=== PATIENT | male | born 1960 | race Caucasian/White ===

== ENCOUNTER → 2017-09-24 | Outpatient (CLI) | payer MEDICARE, MEDICAID ==
[~2017-09-24] MED LIST: ACET500T68 PO; ALP1 PO; ALPR-429 PO; AMA100 PO; AMLO-104 PO; AUG875 PO; AVONEX IM; AZIT-17 PO; CHOL10005 PO; DIA5 PO; DIAZ-308 PO; DIPH-466 PO; DOCU-416 PO; ESCI20TA8 PO; ESCI5TAB3 PO; FING0.5C2 PO; FLU20 PO; FLU45SYR25 IM ONLY; FLU60SYR30 IM ONLY; FLUO-202 PO; FLUT16SP20 NS; GAB100 PO; GABA-547 PO; GABA-549 PO; KETO5DRO50 OS; LAMO200T46 PO; LATA2.5D7 OU; LISI-362 PO; LISI-374 PO; LOR10 PO; LOR5/325 PO; LOR75 PO; LOVA40TA89 PO; MET500 PO; METF-1 PO; METF-411 PO; METO50TA19 PO; METXL50 PO; MIR15 PO; MIRT-22 PO; NAPR-1043 PO; NAPR220C12 PO; NEBI10TA4 PO; NYST1POW24 PO; PNEI IJ; PRED5DRO34 OS; SAW450CA3 PO
[2017-09-24 14:00] LABS: PLATELET COUNT, AUTOMATED 209 K/uL (150-450)
[2017-09-24 14:17] LABS: LDL CHOLESTEROL 55 mg/dl
== END ==
LOC: LAB 13:37
PROVIDERS: ATTEND Internal Medicine
DX: G35 Multiple sclerosis (principal); E78.5 Hyperlipidemia, unspecified; E11.9 Type 2 diabetes mellitus without complications; I10 Essential (primary) hypertension; F43.23 Adjustment disorder with mixed anxiety and depressed mood; R53.1 Weakness; W19.XXXA Unspecified fall, initial encounter
CPT/HCPCS: 36415; 82040; 82247; 82306; 82310; 82374; 82435; 82465; 82565; 82947; 83036; 83718; 84075; 84132; 84155; 84295; 84443; 84450; 84460; 84478; 84520; 85025

== ENCOUNTER → 2017-10-24 | Outpatient (CLI) | payer MEDICARE, MEDICAID ==
--- NOTE | 2017-10-24 20:20 | RADIOLOGY IMAGING REPORT ---
FACILITY: [facility] - [place] PATIENT NAME: Mina Paige : 1960 MR: [id number] V: [id number] EXAM DATE: ORDERING PHYSICIAN: LOLITA BRADY TECHNOLOGIST: Location: [facility] Patient: Mina Paige : 1960 Visit/Account:[id number] Date of Sevice: 10/24/2017 CT OF THE BRAIN WITHOUT CONTRAST HISTORY: Head trauma PROCEDURE: 3.0 mm contiguous axial sections were performed through the brain. Sagittal and coronal r eformats were submitted. COMPARISON: MR brain December 06, 2016 FINDINGS: BRAIN: Brain and intracranial structures: There is no mass lesion, hemorrhage or acute infarct. Moderate dif fuse cerebral volume loss. Periventricular and deep matter foci of hypoattenuation likely correspond to the T2 bright abnormalities better demonstrated on prior MRI and may reflect areas of demyelinatio n. Prominence of the frontal extra-axial space is unchanged from the comparison MRI. Orbits (included portions): Normal. Scalp: Normal. Skull: No fracture identified with some blurriness related to suboptimal kernel. Paranasal sinuses and mastoid air cells (included portions): Normal. IMPRESSION: No evidence of acute intracranial abnormality. One of the following dose optimization techniques was utilized in the performance of this exam: Autom ated exposure control; adjustment of the mA and/or kV according to the patient's size; or use of an i terative reconstruction technique. Specific details can be referenced in the facility's radiology C T exam operational policy. Report Dictated By: Fabio Dhaliwal MD at 10/24/2017 8:07 PM Report E-Signed By: Fabio Dhaliwal MD at 10/24/2017 8:17 PM WSN:[id number]
== END ==
LOC: CT 19:15
PROVIDERS: ATTEND Nurse Practitioner Family
DX: S09.90XA Unspecified injury of head, initial encounter (principal)
CPT/HCPCS: 70450

== ENCOUNTER → 2017-11-06 | Outpatient (CLI) | payer MEDICARE, MEDICAID ==
[~2017-11-06] MED LIST changes: +METO25TA23 PO
--- NOTE | 2017-11-06 13:43 | RADIOLOGY IMAGING REPORT ---
FACILITY: [facility] - [place] PATIENT NAME: Mina Paige : 1960 MR: [id number] V: [id number] EXAM DATE: ORDERING PHYSICIAN: NI EMERY TECHNOLOGIST: Location: [facility] [place] Patient: Mina Paige : 1960 Visit/Account:[id number] Date of Sevice: 11/06/2017 Exam type: TEMPOROMANDIBULAR History: left TMJ pain Comparison: None. Findings: Open and closed mouth views of the TMJs were obtained bilaterally. There was normal anterior transla tion of the mandibular condyles bilaterally on the open-mouth views. No significant sclerosis was id entified at the joint space IMPRESSION: 1. Unremarkable TMJ views. If pain does continue MR may be helpful Report Dictated By: Magda Aviels MD at 11/06/2017 1:36 PM Report E-Signed By: Magda Aviles MD at 11/06/2017 1:38 PM WSN:[id number]
== END ==
LOC: RAD 11:40
PROVIDERS: ATTEND Internal Medicine
DX: M26.629 Arthralgia of temporomandibular joint, unspecified side (principal)
CPT/HCPCS: 70330

== ENCOUNTER → 2017-11-18 | Outpatient (CLI) | payer MEDICARE, MEDICAID | LOC: LAB 16:06 | PROVIDERS: ATTEND Urology | DX: Z12.5 Encounter for screening for malignant neoplasm of prostate (principal) | CPT/HCPCS: 36415; G0103; 84153 ==

== ENCOUNTER 2017-12-26 16:15 | Outpatient (RCR) | payer MEDICARE, MEDICAID ==
--- NOTE | 2017-10-02 08:47 | PT INITIAL EVALUATION ---
MEDICAL DIAGNOSIS: W19.XXXA Fall, R53.1 Weakness TREATMENT DIAGNOSIS: Fall risk, weakness, altered gait and balance DATE OF ONSET: 03/25/17 SUBJECTIVE: Mina Paige presents to PT for recurrent falls at home due to his MS. He relates he's become more weak, L foot drop now, and is falling at home about 3 times per week. 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 He has home health [employer] for cleaning, cooking, supervision of showering three times per week. OBJECTIVE: Posture: Heels 12" apart, trunk flexed 30 degrees, knees hyperextended. ROM: L ankle PROM -15 degrees. Strength: Quads 3/5, PF 2/5, L ankle DF 3-/5. Mobility: Five times sit to stand, 21" seat height in 41 seconds. Gait: RW/rollator with feet not passing each other, L foot drop, trunk flexed 30 degrees, turns with stopping, >4 seconds, 50 feet in 5 minutes. Balance: Functional reach 0", heels 12" apart, knees lock out. Static stand 7- 10 seconds. ASSESSMENT: Mina Paige presents with high fall risk, weakness, altered gait and balance. He needs consult for a L AFO. He's an excellent candidate to reduce fall risk. Short Term Goals One month: Zaida reports fall frequency reduced to 2x/week, reaches forward 2" standing. Two months: Zaida reports 0-1 fall/week, reaches 5 inches forward, picks up objects from floor without falling. Patient's Goals Reduce falls and be stronger for gait with RW/4WW. PLAN: Patient to be seen for Strengthening/condition, Stretching, Neuromuscular Re-ed, Gait Trg/Balance Trg, Home Exercise Program 2x/Week for 2 Months Thank you for this referral. If you have any questions, comments, or concerns about this report or plan, please contact me at . RICCOD
--- NOTE | 2017-11-05 17:34 | PT PLAN OF CARE ---
Physician: Dr. Vladimir Teague Patient is being seen: 2x/week Therapist: Jesenia Bermudez, PT Medical Diagnosis: W19.XXXA Fall, R53.1 Weakness Treatment Diagnosis: Fall risk, weakness, altered gait and balance Date of Onset: 03/25/17 Date of Initial Evaluation: 10/01/17 Date patient was last seen: 11/05/17 Number of treatments: 10 Number of cancellations/No shows: 0 INTERVENTIONS: Strengthening/condition Stretching Neuromuscular Re-ed Gait Trg/Balance Trg Home Exercise Program GOALS: One month: Zaida reports fall frequency reduced to 2x/week, reaches forward 2" standing. (both met) Two months: Zaida reports 0-1 fall/week (not met), reaches 5 inches forward (met ), picks up objects from floor without falling (not met). PATIENT'S GOAL: Reduce falls and be stronger for gait with RW/4WW. (both progressing) Patient Compliance: Good Prognosis: Excellent Reasons for continuing therapy: S: Mina relates he's falling about 2-3 times per week now, not 2x/day. Posture: Heels 10" apart, trunk flexed 30 degrees, knees flexed. ROM: Ankles PROM -10 degrees. Gait: Rollator with R heel strike now, R heel just past L foot, L knee stiffness limits L knee extension for heel strike, 171 feet in 3 minutes. Gait speed with rollator 1 foot/seconds, a household ambulator. Balance: Unsteady turning L and R with SPC, but able to lift each foot. Functional reach improved from 0" to 5". Mobility: Five times sit to stand, 21" seat height in 31 seconds, a 72% impairment, an improvement from 41 seconds. A/P: Mina Paige is improving functional mobility, reducing fall risk slightly. He would benefit from continued PT to improve gait, balance and mobility more. If you agree, we'll continue at 2x/week another 6-8 weeks to goals set. Thank you. THERON
--- NOTE | 2017-12-18 14:12 | PT PLAN OF CARE ---
Physician: Dr. Vladimir Teague Patient is being seen: 2x/week Therapist: Jesenia Bermudez, PT Medical Diagnosis: W19.XXXA Fall, R53.1 Weakness Treatment Diagnosis: Fall risk, weakness, altered gait and balance Date of Onset: 03/25/17 Date of Initial Evaluation: 10/01/17 Date patient was last seen: 12/17/17 Number of treatments: 20 Number of cancellations/No shows: 0 INTERVENTIONS: Strengthening/condition Stretching Neuromuscular Re-ed Gait Trg/Balance Trg Home Exercise Program GOALS: One month: Zaida reports fall frequency reduced to 2x/week, reaches forward 2" standing. both met Two months: Zaida reports 0-1 fall/week (not met), reaches 5 inches forward (met), picks up objects from floor without falling (not met). PATIENT'S GOAL: Reduce falls and be stronger for gait with RW/4WW. Progressing Patient Compliance: Good Prognosis: Excellent Reasons for continuing therapy: S: Mina relates he's walking about his apartment but not in the hallways because he's self-conscious. He has 2 falls per week in his apartment. He's to be doing ankle stretching at home. Posture: Heels 12" apart, trunk upright. ROM: L ankle PROM -25 degrees. Strength: Quads 3/5, PF 2/5, L ankle DF 3-/5. Special Tests: Fiver times sit to stand reduced from 31 seconds to 24 seconds, still 100% disabled by the G-code calculator but better that evaluation and last POC date. Timed up and go with walker 25 seconds (max. breakoff = 21 seconds. Functional reach 5". Mobility: Five times sit to stand, 21" seat height in 41 seconds. Gait: Mina ambulates with R foot drop, but has ankle contracture, rollator or RW, 170 feet. A/P: Mina Paige is improving his strength, gait speed, has the same functional reach. If you agree, I'd like him to work PT another month, 2x/week, so we con work more balance and gait. Thank you. THERON
[~2017-12-26 16:15] MED LIST changes: -METF-411 PO; +METF-450 PO
== END 2017-12-30 ==
LOC: PT 16:15
PROVIDERS: ATTEND Internal Medicine
DX: R53.1 Weakness (principal); R26.89 Other abnormalities of gait and mobility; R29.6 Repeated falls; W19.XXXA Unspecified fall, initial encounter; G35 Multiple sclerosis; M21.372 Foot drop, left foot; E11.9 Type 2 diabetes mellitus without complications
CPT/HCPCS: 97162

== ENCOUNTER → 2018-05-29 | Outpatient (CLI) | payer MEDICARE, MEDICAID ==
[2018-05-29 13:21] LABS: PLATELET COUNT, AUTOMATED 207 K/uL (150-450)
[2018-05-29 13:41] LABS: LDL CHOLESTEROL 87 mg/dl
== END ==
LOC: LAB 12:58
PROVIDERS: ATTEND Internal Medicine
DX: F41.9 Anxiety disorder, unspecified (principal); G35 Multiple sclerosis; R00.1 Bradycardia, unspecified; E78.5 Hyperlipidemia, unspecified; E11.9 Type 2 diabetes mellitus without complications; I10 Essential (primary) hypertension
CPT/HCPCS: 36415; 82040; 82247; 82310; 82374; 82435; 82465; 82565; 82947; 83036; 83718; 84075; 84132; 84155; 84295; 84443; 84450; 84460; 84478; 84520; 85025

== ENCOUNTER 2018-11-05 11:36 | Inpatient (IN) | payer MEDICARE, MEDICAID ==
[~2018-11-05] VITALS: Ht 175.3 cm; Wt 75.3 kg
[~2018-11-05 11:36] MED LIST changes: -ACET-2007 PO; -CEFT1VIA63 IV; -ENOX40DI9 SC; -INSU100V24 SUBQ; -LAMO250T2 PO; -LIDO700A19 TP; -POTA20TA94 PO
--- NOTE | 2018-11-05 11:58 | ER Report ---
History and Physical Time Seen By MD: 11:43 Hx. of Stated Complaint: HISTORY OF MS. FELL BACKWARDS FRTOM STANDING POSITION AND HIT HEAD. DOES NOT FULLY REMMEBER THE FALL HPI/ROS CHIEF COMPLAINT: Fall HISTORY OF PRESENT ILLNESS: Patient is a 58 year old male here complaining of pain in his back and left elbow after a fall at home. He does not really remember how he fell but that he falls frequently due to generalized weakness and equilibrium problems due to MS dx since 2008. States he has fallen 3 times in the last 3 days and his home health MESS COOK brought him into the ED today. Pt has fever on arrival of 101. REVIEW OF SYSTEMS: Respiratory: No cough, no dyspnea. Cardiovascular: No chest pain, no palpitations. Gastrointestinal: No vomiting, no abdominal pain. Musculoskeletal: back pain, left elbow pain, head pain Allergies: Coded Allergies: aspirin (Verified Allergy, Mild, 11/05/18) father's temp drops 6-7 degrees penicillin G (Verified Allergy, Unknown, 11/05/18) Home Meds Active Scripts Amlodipine Besylate (NORVASC) 10 Mg Tablet, 1 TAB PO QDAY, #90 TAB 3 Refills Prov:NI EMERY MD 10/14/18 Lisinopril (LISINOPRIL) 40 Mg Tablet, 1 TAB PO QDAY, #90 TAB 3 Refills Prov:NI EMERY MD 10/14/18 Escitalopram Oxalate (ESCITALOPRAM OXALATE) 20 Mg Tablet, 20 MG PO QDAY, #90 TAB 3 Refills Prov:NI EMERY MD 10/14/18 Amantadine Hcl (AMANTADINE) 100 Mg Capsule, 100 MG PO BID, #180 CAPSULE 1 Refill Prov:NI EMERY MD 08/20/18 Metformin Hcl (METFORMIN HCL) 500 Mg Tablet, 2 TAB PO BID, #360 TAB 4 Refills Prov:NI EMERY MD 06/09/18 Metoprolol Succinate (METOPROLOL SUCCINATE) 50 Mg Tab.er.24h, 1 TAB PO QDAY, #90 TAB 3 Refills Prov:NI EMERY MD 05/27/18 Lovastatin (LOVASTATIN) 40 Mg Tablet, 1 TAB PO QHS, #90 TAB 1 Refill Prov:NI EMERY MD 05/20/18 Mirtazapine (MIRTAZAPINE) 15 Mg Tablet, 1 TAB PO QHS, #90 TAB 3 Refills Prov:NI EMERY MD 02/04/18 Gabapentin (GABAPENTIN) 300 Mg Capsule, 300 MG PO TID, #270 CAPSULE 4 Refills Prov:NI EMERY MD 11/05/17 Reported Medications Prednisolone Acetate (PREDNISOLONE ACETATE) 5 Ml Drops.susp, 1 DROP OS QID 08/06/16 Latanoprost (LATANOPROST) 2.5 Ml Drops, 1 DROP OU QHS 08/06/16 Ketorolac Tromethamine (ACULAR) 5 Ml Drops, 1 DROP OS QID 08/06/16 Saw [place] Fruit (SAW PALMETTO) 450 Mg Capsule, PO QHS, CAPSULE 08/06/16 Acetaminophen (TYLENOL EXTRA STRENGTH) 500 Mg Tablet, 1 TAB PO Q6H PRN for pain, TAB 01/19/16 Cholecalciferol (Vitamin D3) (VITAMIN D3) 1,000 Unit Tablet, 1 TAB PO QDAY, TAB 01/19/16 Lamotrigine (LAMICTAL) 200 Mg Tablet, 1 TAB PO QDAY 01/19/16 Fingolimod (GILENYA) 0.5 Mg Cap, 1 CAP PO QDAY, CAP 01/19/16 Diazepam (DIAZEPAM) 5 Mg Tablet, 0.5-1 TAB PO QDAY PRN for MILD TO MODERATE PAIN, #15 TAB 01/19/16 Past Medical/Surgical History Past medical history of Multiple Sclerosis, Migraines, HTN, Asthma, Hiatal Hernia, arthritis, back pain, diabetes, depression/anxiety Past surgical history of hiatal hernia surgery, abdominal hernia, bilat wrists, R elbow, L knee x3, tonsillectomy, cataract surgery Family history of diabetes in mother, stroke in father Reviewed Nurses Notes: Yes Hx Smoking: No Smoking Status: Current: Some Days Smoker Exposure to Second Hand Smoke?: No Hx Substance Use Disorder: No Hx Alcohol Use: No Constitutional Vital Sign - Last 24 Hours 11/05/18 11/05/18 11/05/18 11/05/18 11:37 12:00 13:00 13:26 Temp 101.1 100.3 Pulse 99 94 91 Resp 20 22 22 B/P (MAP) 132/78 157/77 (103) 162/84 (110) Pulse Ox 90 96 94 O2 Delivery Room Air 11/05/18 11/05/18 11/05/18 11/05/18 14:00 14:30 15:00 15:30 Pulse 88 87 84 Resp 22 23 23 B/P (MAP) 159/84 (109) 157/83 (107) 161/84 (109) 142/77 (98) Pulse Ox 85 91 91 92 Physical Exam General Appearance: The patient is alert, has no immediate need for airway protection and no current signs of toxicity. Eyes: Pupils equal and round no injection, EOMI Respiratory: Chest is non tender, lungs are clear to auscultation. Cardiac: regular rate and rhythm Gastrointestinal: Abdomen is soft and non tender, no masses, bowel sounds normal. Musculoskeletal: Neck: Neck is supple and non tender, C collar on Left elbow with limited ROM in extension to 100 degrees Skin: No rashes or lesions, several lacerations with scabbing on bilateral knees, one bruise on left lateral deltoid with tenderness DIFFERENTIAL DIAGNOSIS: After history and physical exam differential diagnosis was considered for humerus fracture, subarachnoid hemorrhage, spinal fracture, altered mental status, MS exacerbation, UTI Medical Decision Making Data Points Result Diagram: 11/05/18 1144 11/05/18 1144 Laboratory Hematology Test 11/05/18 11:44 White Blood Count 14.0 k/uL (4.5-11.0) H Red Blood Count 5.11 M/uL (4.00-5.60) Hemoglobin 15.6 g/dL (14.0-18.0) Hematocrit 45.2 % (42.0-52.0) Mean Corpuscular Volume 88.6 fL (80.0-96.0) Mean Corpuscular Hemoglobin 30.6 pg (26.0-33.0) Mean Corpuscular Hemoglobin Concent 34.6 g/dL (32.0-36.0) Red Cell Distribution Width 13.8 % (11.5-14.5) Platelet Count 170 K/uL (150-450) Mean Platelet Volume 9.4 fL (7.2-11.1) Neutrophils (%) (Auto) 90.6 % (39.4-72.5) H Lymphocytes (%) (Auto) 1.9 % (17.6-49.6) L Monocytes (%) (Auto) 7.4 % (4.1-12.4) Eosinophils (%) (Auto) 0.0 % (0.4-6.7) L Basophils (%) (Auto) 0.1 % (0.3-1.4) L Nucleated RBC Relative Count (auto) 0.5 /100WBC Neutrophils # (Auto) 12.7 K/uL (2.0-7.4) H Lymphocytes # (Auto) 0.3 K/uL (1.3-3.6) L Monocytes # (Auto) 1.0 K/uL (0.3-1.0) Eosinophils # (Auto) 0.0 K/uL (0.0-0.5) Basophils # (Auto) 0.0 K/uL (0.0-0.1) Nucleated RBC Absolute Count (auto) 0.06 K/uL Chemistry Test 11/05/18 11:44 Sodium Level 142 mmol/L (137-145) Potassium Level 4.2 mmol/L (3.5-5.0) Chloride Level 104 mmol/L (98-107) Carbon Dioxide Level 17 mmol/L (22-30) Blood Urea Nitrogen 20 mg/dl (9-21) Creatinine 1.40 mg/dl (0.66-1.25) Glomerular Filtration Rate Calc 52.1 Random Glucose 149 mg/dl (75-110) Lactate 2.0 mmol/L (0.7-2.1) Calcium Level 9.9 mg/dl (8.4-10.2) Total Bilirubin 1.2 mg/dl (0.2-1.3) Aspartate Amino Transf (AST/SGOT) 68 U/L (0-35) Alanine Aminotransferase (ALT/SGPT) 62 U/L (0-56) Alkaline Phosphatase 146 U/L (0-126) Total Creatine Kinase 2425 U/L (55-170) Total Protein 7.6 g/dl (6.3-8.2) Albumin 4.8 g/dl (3.5-5.0) Urinalysis Test 11/05/18 12:19 Urine Color Yellow Urine Clarity Clear Urine pH 5.0 pH (4.8-9.5) Urine Specific [place] 1.019 Urine Protein 100 mg/dL (NEGATIVE) Urine Glucose (UA) Negative mg/dL (NEGATIVE) Urine Ketones 80 mg/dL (NEGATIVE) Urine Blood Moderate (NEGATIVE) Urine Nitrite Negative (NEGATIVE) Urine Bilirubin Negative (NEGATIVE) Urine Urobilinogen Negative mg/dL (0.2-1.9) Urine Leukocyte Esterase Trace (NEGATIVE) Urine RBC 4 /HPF (0-2/HPF) Urine WBC 34 /HPF (0-5/HPF) Urine Squamous Epithelial Cells None /LPF (NONE-FEW) Urine Bacteria Negative /HPF (NONE-FEW) Urine Hyaline Casts Few /LPF (NONE-FEW) Urine Mucus None /HPF (NONE-FEW) EKG/Imaging Imaging EXAMINATION: CT thoracic spine without IV contrast CT lumbar spine without IV contrast HISTORY: Fall COMPARISON: None. TECHNIQUE: Axial images were obtained through the thoracic and lumbar spine. Coronal and sagittal reformatted images were obtained from the axial source data. One of the following dose optimization techniques was utilized in the perfor anna of this exam: Automated exposure control; adjustment of the mA and/or kV according to the patient's size; or use of an iterative reconstruction technique. Specific details can be referenced in the facility's radiology CT exam operational policy. FINDINGS: Alignment: Normal. Vertebral bodies: The thoracic vertebral bodies are intact. There is a compression deformity of the L1 vertebral body with height loss anteriorly. Posterior elements: Negative. Hardware: None. Disc Spaces: The thoracic disc spaces are intact. Soft tissues: The bladder is incompletely visualized but demonstrate a thickened wall. There is also a cystic, peripherally calcified mass anterior to the bladder, incompletely visualized. Enhancement: Negative. IMPRESSION: 1. Compression deformity of the superior anterior aspect of the L1 vertebral body of uncertain chronicity, this may be acute. This was not present on 06/08/2011. 2. No acute fracture in the thoracic spine. No thoracolumbar malalignment. 3. The bladder is incompletely visualized but demonstrate a thickened wall, may be related to chronic retention or bowel obstruction. 4. Cystic, peripherally calcified mass anterior to the bladder, incompletely visualized, however grossly similar compared with 06/08/2011. EXAMINATION: CT thoracic spine without IV contrast CT lumbar spine without IV contrast HISTORY: Fall COMPARISON: None. TECHNIQUE: Axial images were obtained through the thoracic and lumbar spine. Coronal and sagittal reformatted images were obtained from the axial source data. One of the following dose optimization techniques was utilized in the performance of this exam: Automated exposure control; adjustment of the mA and/or kV according to the patient's size; or use of an iterative reconstruction technique. Specific details can be referenced in the facility's radiology CT exam operational policy. FINDINGS: Alignment: Normal. Vertebral bodies: The thoracic vertebral bodies are intact. There is a compression deformity of the L1 vertebral body with height loss anteriorly. Posterior elements: Negative. Hardware: None. Disc Spaces: The thoracic disc spaces are intact. Soft tissues: The bladder is incompletely visualized but demonstrate a thickened wall. There is also a cystic, peripherally calcified mass anterior to the bladder, incompletely visualized. Enhancement: Negative. IMPRESSION: 1. Compression deformity of the superior anterior aspect of the L1 vertebral body of uncertain chronicity, this may be acute. This was not present on 06/08/2011. 2. No acute fracture in the thoracic spine. No thoracolumbar malalignment. 3. The bladder is incompletely visualized but demonstrate a thickened wall, may be related to chronic retention or bowel obstruction. 4. Cystic, peripherally calcified mass anterior to the bladder, incompletely visualized, however grossly similar compared with 06/08/2011. EXAMINATION: CT Cervical spine without intravenous contrast HISTORY: Fall. COMPARISON: MRI of the cervical spine from 09/29/2013. TECHNIQUE: Axial images were obtained from the skull base through the upper thoracic spine without IV contrast administration. Coronal and sagittal reformatted images were obtained from the axial source data. One of the following dose optimization techniques was utilized in the performance of this exam: Automated exposure control; adjustment of the mA and/or kV according to the patient's size; or use of an iterative reconstruction technique. Specific details can be referenced in the facility's radiology CT exam operational policy. FINDINGS: Alignment: Normal. Cranio-cervical junction: Negative. Vertebral bodies: No acute fracture. Posterior elements: No acute fracture. Mild multilevel facet hypertrophy. Hardware: None. Disc Spaces: Advanced multilevel disc degenerative changes in the cervical spine. Soft tissues: No significant paraspinal soft tissue swelling. Calcified plaque at the carotid bifurcations. Visualized upper chest: Negative. IMPRESSION: No acute fracture of the cervical spine. Multilevel cervical spondylosis. EXAMINATION: CT head without IV contrast HISTORY: Fall COMPARISON: 10/24/2017. TECHNIQUE: Contiguous axial images were obtained from the skull base to the vertex without intravenous contrast. Sagittal and coronal reformatted images are also submitted. One of the following dose optimization techniques was utilized in the performance of this exam: Automated exposure control; adjustment of the mA and/or kV according to the patient's size; or use of an iterative reconstruction technique. Specific details can be referenced in the facility's radiology CT exam operational policy. FINDINGS: Brain volume: Stable. Ventricles: Stable. Acute ischemic changes: None. Hemorrhage: None. Masses/edema: None. [place]-white: Negative. White matter: Low-density changes noted in the hemispheric, predominantly periventricular white matter. Vessels: Calcified plaque of both carotid siphons. Extra-axial: Negative. Calvarium/scalp: Negative. Skull base/visualized face: Negative. Visualized sinuses/orbits: Negative. IMPRESSION: 1. No acute intracranial findings. 2. Atherosclerotic disease. 3. Chronic white matter changes. Report Dictated By: HEAVENLY MUNOZ at 11/05/2018 1:48 PM Report E-Signed By: HEAVENLY MUNOZ at 11/05/2018 1:54 PM WSN:[email or web address]-S CT CHEST ABDOMEN PELVIS W/CON HISTORY: Fall, ADDITIONAL HISTORY: None. TECHNIQUE: Following administration of IV contrast axial images acquired through the chest abdomen and pelvis during the portal venous phase. Coronal and sagittal reformatting was also performed.Dose Lowering Technique One of the following dose optimization techniques was utilized in the performance of this exam: Automated exposure control; adjustment of the mA and/or kV according to the patient's size; or use of an iterative reconstruction technique. Specific details can be referenced in the facility's radiology CT exam operational policy. CONTRAST: 75 mL Isovue-370 COMPARISON: June 12, 2011 FINDINGS: CHEST: Lungs/Pleura: Negative. Mediastinum/lymph nodes: Negative. Heart/vessels: Very mild coronary artery calcifications Bones/soft tissues: Negative ABDOMEN AND PELVIS: Hepatobiliary: Cholelithiasis although no evidence of biliary ductal dilatation Spleen: Negative. Pancreas: Negative. Adrenals: Negative. Kidneys ureters and bladder : There are extrarenal pelves bilaterally. There is a lobular contour to both kidneys. There is a 1.3 cm cyst in the medial lower pole of the right kidney. This mild bladder wall thickening Genitalia: Postsurgical changes from a penile prosthesis GI: The colon is very redundant. There is a moderate amount of fecal material throughout the colon which can be seen with constipation. Postsurgical changes at the GE junction from a fundoplication Vessels/spaces/nodes: Mild to moderate atherosclerotic calcifications throughout the abdomen and pelvis Bones/soft tissues: There is a mild compression fracture involving the super endplate of L1. This is of indeterminate age however there are marginal osteophytes suggesting this could be an old injury. Clinical correlation needed Additional findings: None pertinent. IMPRESSION: Cholelithiasis although no evidence of biliary ductal dilatation Mild compression fracture involving the superior endplate of L1. This is of indeterminate age however there are marginal osteophytes suggesting this could be an old injury. Very redundant colon with a moderate amount of fecal material which can be seen with constipation Mild bladder wall thickening Additional chronic findings as described Report Dictated By: Magda Aviles MD at 11/05/2018 1:53 PM Report E-Signed By: Magda Aviles MD at 11/05/2018 2:09 PM WSN:[email or web address] Exam type: ELBOW 3 VIEW LEFT History: fall, back pain Comparison: None. Findings: Three views were submitted. There are several tiny bony densities projecting just anterior to the elbow joint on the lateral view. These could be chronic versus peritendinous calcifications although tiny avulsion fracture fragments cannot be totally excluded. Otherwise no evidence of acute fracture dislocation of the left elbow is seen IMPRESSION: 1. Several tiny bony densities just anterior to the elbow joint on the lateral view. This could be chronic versus peritendinous calcination occasions although avulsion fracture fragments not totally excluded. Report Dictated By: Magda Aviles MD at 11/05/2018 1:02 PM Report E-Signed By: Magda Aviles MD at 11/05/2018 1:04 PM WSN:[email or web address] Exam type: CHEST PA LAT History: FEVER Comparison: April 03, 2014. Findings: The lungs are free of acute effusions, infiltrates or edema. The cardiac silhouette is normal in size. The trachea is in midline. There is a mild compression fracture at the thoracolumbar junction not appreciated on the prior study IMPRESSION: 1. No evidence of pulmonary consolidation. There is a mild compression fracture at the thoracolumbar junction not present on the prior study Report Dictated By: Magda Aviles MD at 11/05/2018 1:04 PM Report E-Signed By: Magda Aviles MD at 11/05/2018 1:06 PM WSN:[email or web address] ED Course/Re-evaluation ED Course Patient is a 58 year old male presenting to ED after a fall at home. His home health nurse encouraged him to come in. He has had 3 falls in the past 3 days. Patient has a diagnosis of MS and states that it has been getting worse recently because he is falling more often. Patient expressed pain in his mid back and left elbow. Uses a rolling walker at home occasionally. Is unsure if he took his medications this morning for diabetes, HTN and MS. Has not eaten since yesterday morning because he could not get around the house well. Physical exam revealed limited ROM in extension of the left elbow and RUQ tenderness to palpation. Denies any changes to urinary or BMs. Differential diagnoses considered. CBC, CMP, UA, Blood cultures were ordered due to fever upon arrival to ED. CT brain w/o contrast, CT chest/abd/pelvis w/ contrast, C-spine XR and Left elbow XR were ordered. Old compression fracture of L1 vertebra, an old avulsion fracture on the left elbow, cholelithiasis and UTI were discovered. No other acute findings. Patient was informed of his condition and understood. Chose to be admitted due to the fact that his weakness, equilibrium is worse at this point. Patient received 1 NS Bolus, Tdap Boostrix, 1g acetaminophen and 1g of Rochepin and then admitted. Decision to Disposition Date: Nov 05, 2018 Decision to Disposition Time: 15:43 Depart Departure Latest Vital Signs Vital Signs Date Time Temp Pulse Resp B/P (MAP) Pulse Ox O2 Delivery O2 Flow Rate FiO2 11/05/18 15:30 84 142/77 (98) 92 11/05/18 15:00 23 11/05/18 13:26 100.3 11/05/18 11:37 Room Air Impression: Primary Impression: Urinary tract infection Additional Impressions: Compression fracture of L1 vertebra Fall Condition: Improved Disposition: HOME OR SELF-CARE Referrals: NI EMERY MD (PCP) Patient Instructions: Fall Prevention (ED), Urinary Tract Infection in Men (ED), Vertebral Compression Fracture (ED) Additional Instructions: Rest and increase fluids. Take antibiotics as prescribed. Follow up with Primary Care Physician. Return to ED if symptoms suddenly worsen. Problem Qualifiers Primary Impression: Urinary tract infection Urinary tract infection type: acute cystitis Hematuria presence: without hematuria Qualified Codes: N30.00 - Acute cystitis without hematuria Additional Impressions: Compression fracture of L1 vertebra Encounter type: initial encounter Qualified Codes: S32.010A - Wedge compression fracture of first lumbar vertebra, initial encounter for closed fracture Fall Encounter type: initial encounter Qualified Codes: W19.XXXA - Unspecified fall, initial encounter MARCIN SHARMA Nov 05, 2018 11:58
[2018-11-05] MEDS ORDERED: DIPHTH/TETANUS/ACEL. PERTUSSIS IM ONLY ONE (12:05)
[2018-11-05] MEDS ORDERED: NS(*) 0.9% 1000 ML BAG 1,000 ML IV ONE (12:05)
[2018-11-05 12:15] LABS: PLATELET COUNT, AUTOMATED 170 K/uL (150-450)
[2018-11-05] MEDS ORDERED: ACETAMINOPHEN(*)1000 MG/100 ML 100 ML IVPB ONE (12:35)
--- NOTE | 2018-11-05 13:12 | RADIOLOGY IMAGING REPORT ---
FACILITY: PATIENT NAME: Mina Paige : 1960 MR: [id number] V: [id number] EXAM DATE: ORDERING PHYSICIAN: MARCIN SHARMA TECHNOLOGIST: Location: [facility] Patient: Mina Paige : 1960 Visit/Account:[id number] Date of Sevice: 11/05/2018 Exam type: ELBOW 3 VIEW LEFT History: fall, back pain Comparison: None. Findings: Three views were submitted. There are several tiny bony densities projecting just anterior to the elbow joint on the lateral view . These could be chronic versus peritendinous calcifications although tiny avulsion fracture fragmen ts cannot be totally excluded. Otherwise no evidence of acute fracture dislocation of the left elbow is seen IMPRESSION: 1. Several tiny bony densities just anterior to the elbow joint on the lateral view. This could be chronic versus peritendinous calcination occasions although avulsion fracture fragments not totally e xcluded. Report Dictated By: Magda Aviles MD at 11/05/2018 1:02 PM Report E-Signed By: Magda Aviles MD at 11/05/2018 1:04 PM WSN:[email or web address]
--- NOTE | 2018-11-05 13:15 | RADIOLOGY IMAGING REPORT ---
[place] [facility] [place] Mina Paige : 1960 MR: [id number] V: [id number] EXAM DATE: ORDERING PHYSICIAN: MARCIN SHARMA TECHNOLOGIST: [place] [facility] [place] Mina Paige : 1960 Visit/Account:[id number] Date of Sevice: 11/05/2018 Exam type: CHEST PA LAT History: FEVER Comparison: April 03, 2014. Findings: The lungs are free of acute effusions, infiltrates or edema. The cardiac silhouette is normal in siz e. The trachea is in midline. There is a mild compression fracture at the thoracolumbar junction no t appreciated on the prior study IMPRESSION: 1. No evidence of pulmonary consolidation. There is a mild compression fracture at the thoracolumbar junction not present on the prior study Report Dictated By: Magda Aviles MD at 11/05/2018 1:04 PM Report E-Signed By: Magda Aviles MD at 11/05/2018 1:06 PM MAGGIN:BALBINA
[2018-11-05] MEDS ORDERED: IOPAMIDOL 76% 100 ML INFUS BTL 100 ML ONE (13:24)
--- NOTE | 2018-11-05 14:02 | RADIOLOGY IMAGING REPORT ---
FACILITY: [facility] [place] PATIENT NAME: Mina Paige : 1960 MR: [id number] V: [id number] EXAM DATE: ORDERING PHYSICIAN: MARCIN SHARMA TECHNOLOGIST: Location: [facility] Patient: Mina Paige : 1960 Visit/Account:[id number] Date of Sevice: 11/05/2018 EXAMINATION: CT head without IV contrast HISTORY: Fall COMPARISON: 10/24/2017. TECHNIQUE: Contiguous axial images were obtained from the skull base to the vertex without intraven ous contrast. Sagittal and coronal reformatted images are also submitted. One of the following dose optimization techniques was utilized in the performance of this exam: Autom ated exposure control; adjustment of the mA and/or kV according to the patient's size; or use of an i terative reconstruction technique. Specific details can be referenced in the facility's radiology C T exam operational policy. FINDINGS: Brain volume: Stable. Ventricles: Stable. Acute ischemic changes: None. Hemorrhage: None. Masses/edema: None. [place]-white: Negative. White matter: Low-density changes noted in the hemispheric, predominantly periventricular white karthikeyan er. Vessels: Calcified plaque of both carotid siphons. Extra-axial: Negative. Calvarium/scalp: Negative. Skull base/visualized face: Negative. Visualized sinuses/orbits: Negative. IMPRESSION: 1. No acute intracranial findings. 2. Atherosclerotic disease. 3. Chronic white matter changes. Report Dictated By: HEAVENLY MUNOZ at 11/05/2018 1:48 PM Report E-Signed By: HEAVENLY MUNOZ at 11/05/2018 1:54 PM WSN:[email or web address]
--- NOTE | 2018-11-05 14:16 | RADIOLOGY IMAGING REPORT ---
FACILITY: PATIENT NAME: Mina Paige : 1960 MR: [id number] V: [id number] EXAM DATE: ORDERING PHYSICIAN: MARCIN SHARMA TECHNOLOGIST: [place] [facility] [place]: [place] : 1960 Visit/Account:[id number] Date of Sevice: 11/05/2018 CT CHEST ABDOMEN PELVIS W/CON HISTORY: Fall, ADDITIONAL HISTORY: None. TECHNIQUE: Following administration of IV contrast axial images acquired through the chest abdomen a nd pelvis during the portal venous phase. Coronal and sagittal reformatting was also performed.Dose Lowering Technique One of the following dose optimization techniques was utilized in the performance of this exam: Autom ated exposure control; adjustment of the mA and/or kV according to the patient's size; or use of an i terative reconstruction technique. Specific details can be referenced in the facility's radiology C T exam operational policy. CONTRAST: 75 mL Isovue-370 COMPARISON: June 12, 2011 FINDINGS: CHEST: Lungs/Pleura: Negative. Mediastinum/lymph nodes: Negative. Heart/vessels: Very mild coronary artery calcifications Bones/soft tissues: Negative ABDOMEN AND PELVIS: Hepatobiliary: Cholelithiasis although no evidence of biliary ductal dilatation Spleen: Negative. Pancreas: Negative. Adrenals: Negative. Kidneys ureters and bladder : There are extrarenal pelves bilaterally. There is a lobular contour to both kidneys. There is a 1.3 cm cyst in the medial lower pole of the right kidney. This mild bladd er wall thickening Genitalia: Postsurgical changes from a penile prosthesis GI: The colon is very redundant. There is a moderate amount of fecal material throughout the colon which can be seen with constipation. Postsurgical changes at the GE junction from a fundoplication Vessels/spaces/nodes: Mild to moderate atherosclerotic calcifications throughout the abdomen and pel vis Bones/soft tissues: There is a mild compression fracture involving the super endplate of L1. This i s of indeterminate age however there are marginal osteophytes suggesting this could be an old injury. Clinical correlation needed Additional findings: None pertinent. IMPRESSION: Cholelithiasis although no evidence of biliary ductal dilatation Mild compression fracture involving the superior endplate of L1. This is of indeterminate age howeve r there are marginal osteophytes suggesting this could be an old injury. Very redundant colon with a moderate amount of fecal material which can be seen with constipation Mild bladder wall thickening Additional chronic findings as described Report Dictated By: Magda Aviles MD at 11/05/2018 1:53 PM Report E-Signed By: Magda Aviles MD at 11/05/2018 2:09 PM WSN:[email or web address]
--- NOTE | 2018-11-05 14:44 | RADIOLOGY IMAGING REPORT ---
FACILITY: [facility] - [place] PATIENT NAME: Mina Paige : 1960 MR: [id number] V: [id number] EXAM DATE: ORDERING PHYSICIAN: MARCIN SHARMA TECHNOLOGIST: [place] [facility] [place] Mina Paige : 1960 Visit/Account:[id number] Date of Sevice: 11/05/2018 EXAMINATION: CT Cervical spine without intravenous contrast HISTORY: Fall. COMPARISON: MRI of the cervical spine from 09/29/2013. TECHNIQUE: Axial images were obtained from the skull base through the upper thoracic spine without I V contrast administration. Coronal and sagittal reformatted images were obtained from the axial [facility] e data. One of the following dose optimization techniques was utilized in the performance of this exam: Autom ated exposure control; adjustment of the mA and/or kV according to the patient's size; or use of an i terative reconstruction technique. Specific details can be referenced in the facility's radiology C T exam operational policy. FINDINGS: Alignment: Normal. Cranio-cervical junction: Negative. Vertebral bodies: No acute fracture. Posterior elements: No acute fracture. Mild multilevel facet hypertrophy. Hardware: None. Disc Spaces: Advanced multilevel disc degenerative changes in the cervical spine. Soft tissues: No significant paraspinal soft tissue swelling. Calcified plaque at the carotid bifurca tions. Visualized upper chest: Negative. IMPRESSION: No acute fracture of the cervical spine. Multilevel cervical spondylosis. Report Dictated By: Cristian Conroy MD at 11/05/2018 2:28 PM Report E-Signed By: Cristian Conroy MD at 11/05/2018 2:36 PM WSN:[id number]
--- NOTE | 2018-11-05 14:57 | RADIOLOGY IMAGING REPORT ---
FACILITY: [facility] [place] PATIENT NAME: Mina Paige : 1960 MR: [id number] V: [id number] EXAM DATE: ORDERING PHYSICIAN: MARCIN SHARMA TECHNOLOGIST: Location: [facility] Patient: Mina Paige : 1960 Visit/Account:[id number] Date of Sevice: 11/05/2018 EXAMINATION: CT thoracic spine without IV contrast CT lumbar spine without IV contrast HISTORY: Fall COMPARISON: None. TECHNIQUE: Axial images were obtained through the thoracic and lumbar spine. Coronal and sagittal re formatted images were obtained from the axial source data. One of the following dose optimization techniques was utilized in the performance of this exam: Autom ated exposure control; adjustment of the mA and/or kV according to the patient's size; or use of an i terative reconstruction technique. Specific details can be referenced in the facility's radiology C T exam operational policy. FINDINGS: Alignment: Normal. Vertebral bodies: The thoracic vertebral bodies are intact. There is a compression deformity of the L1 vertebral body with height loss anteriorly. Posterior elements: Negative. Hardware: None. Disc Spaces: The thoracic disc spaces are intact. Soft tissues: The bladder is incompletely visualized but demonstrate a thickened wall. There is also a cystic, peripherally calcified mass anterior to the bladder, incompletely visualized. Enhancement: Negative. IMPRESSION: 1. Compression deformity of the superior anterior aspect of the L1 vertebral body of uncertain [facility] [place], this may be acute. This was not present on 06/08/2011. 2. No acute fracture in the thoracic spine. No thoracolumbar malalignment. 3. The bladder is incompletely visualized but demonstrate a thickened wall, may be related to chronic retention or bowel obstruction. 4. Cystic, peripherally calcified mass anterior to the bladder, incompletely visualized, however rodolfo sly similar compared with 06/08/2011. Results were discussed with MARCIN SHARMA at 11/05/2018 2:46 PM. Report Dictated By: HEAVENLY MUNOZ at 11/05/2018 2:33 PM Report E-Signed By: HEAVENLY MUNOZ at 11/05/2018 2:48 PM WSN:[email or web address]
--- NOTE | 2018-11-05 14:58 | RADIOLOGY IMAGING REPORT ---
FACILITY: [facility] PATIENT NAME: Mina Paige : 1960 MR: [id number] V: [id number] EXAM DATE: ORDERING PHYSICIAN: MARCIN SHARMA TECHNOLOGIST: Location: [facility] [place] Patient: Mina Paige : 1960 Visit/Account:[id number] Date of Sevice: 11/05/2018 EXAMINATION: CT thoracic spine without IV contrast CT lumbar spine without IV contrast HISTORY: Fall COMPARISON: None. TECHNIQUE: Axial images were obtained through the thoracic and lumbar spine. Coronal and sagittal re formatted images were obtained from the axial source data. One of the following dose optimization techniques was utilized in the performance of this exam: Autom ated exposure control; adjustment of the mA and/or kV according to the patient's size; or use of an i terative reconstruction technique. Specific details can be referenced in the facility's radiology C T exam operational policy. FINDINGS: Alignment: Normal. Vertebral bodies: The thoracic vertebral bodies are intact. There is a compression deformity of the L1 vertebral body with height loss anteriorly. Posterior elements: Negative. Hardware: None. Disc Spaces: The thoracic disc spaces are intact. Soft tissues: The bladder is incompletely visualized but demonstrate a thickened wall. There is also a cystic, peripherally calcified mass anterior to the bladder, incompletely visualized. Enhancement: Negative. IMPRESSION: 1. Compression deformity of the superior anterior aspect of the L1 vertebral body of uncertain [facility] [place], this may be acute. This was not present on 06/08/2011. 2. No acute fracture in the thoracic spine. No thoracolumbar malalignment. 3. The bladder is incompletely visualized but demonstrate a thickened wall, may be related to chronic retention or bowel obstruction. 4. Cystic, peripherally calcified mass anterior to the bladder, incompletely visualized, however rodolfo sly similar compared with 06/08/2011. Results were discussed with MARCIN SHARMA at 11/05/2018 2:46 PM. Report Dictated By: HEAVENLY MUNOZ at 11/05/2018 2:33 PM Report E-Signed By: HEAVENLY MUNOZ at 11/05/2018 2:48 PM WSN:[email or web address]
[2018-11-05] MEDS ORDERED: cefTRIAXone(*) 1 GM VIAL 1 GM in WATER STERILE(*) 10 ML VIAL 10 ML IVP ONE (15:25)
[2018-11-05 16:28] VITALS: BP 151/87
[2018-11-05] MEDS ORDERED: FLUSH 10 ML SYR IVP PRN (17:15)
--- NOTE | 2018-11-05 17:48 | History & Physical ---
History of Present Illness Chief Complaint Found on the floor by home health nurse History of Present Illness 58yo male with long history of MS with LE weakness, type 2 DM. He reports several falls over the past few weeks. He states he has noted increasing generalized weakness over that time. He is usually able to ambulate around his apartment and uses his power chair to go elsewhere outside the apartment. He has had poor appetite with decreased intake as well. He denied any fevers or chills. No N/V/diarrhea. He reports urinary incontinence, which is chronic, but denies dysuria or change in pattern. He denied any cough/dyspnea. No rashes, but has multiple abrasions on lower extremities. He does not recall exactly how he fell or how long he was on the floor. He was evaluated in the ER and found to have elevated CPK, possible UTI, dehydration, L1 compression fracture. He was recommended for admission. History Problems: (1) ADJUSTMENT DISORDER WITH MIXED ANXIETY AND DEPRESSED MOOD Status: Chronic (2) Bradycardia (3) Anxiety and depression Status: Chronic (4) Benign hypertension Status: Chronic (5) Hyperlipidemia Status: Chronic (6) Multiple sclerosis Status: Chronic (7) Diabetes mellitus, type 2 Status: Chronic (8) History of hernia repair Status: Resolved Home Meds Active Scripts Amlodipine Besylate (NORVASC) 10 Mg Tablet, 1 TAB PO QDAY, #90 TAB 3 Refills Prov:NI EMERY MD 10/14/18 Lisinopril (LISINOPRIL) 40 Mg Tablet, 1 TAB PO QDAY, #90 TAB 3 Refills Prov:NI EMERY MD 10/14/18 Escitalopram Oxalate (ESCITALOPRAM OXALATE) 20 Mg Tablet, 20 MG PO QDAY, #90 TAB 3 Refills Prov:NI EMERY MD 10/14/18 Amantadine Hcl (AMANTADINE) 100 Mg Capsule, 100 MG PO BID, #180 CAPSULE 1 Refill Prov:NI EMERY MD 08/20/18 Metformin Hcl (METFORMIN HCL) 500 Mg Tablet, 2 TAB PO BID, #360 TAB 4 Refills Prov:NI EMERY MD 06/09/18 Metoprolol Succinate (METOPROLOL SUCCINATE) 50 Mg Tab.er.24h, 1 TAB PO QDAY, #90 TAB 3 Refills Prov:NI EMERY MD 05/27/18 Lovastatin (LOVASTATIN) 40 Mg Tablet, 1 TAB PO QHS, #90 TAB 1 Refill Prov:NI EMERY MD 05/20/18 Mirtazapine (MIRTAZAPINE) 15 Mg Tablet, 1 TAB PO QHS, #90 TAB 3 Refills Prov:NI EMERY MD 02/04/18 Gabapentin (GABAPENTIN) 300 Mg Capsule, 300 MG PO TID, #270 CAPSULE 4 Refills Prov:NI EMERY MD 11/05/17 Reported Medications Prednisolone Acetate (PREDNISOLONE ACETATE) 5 Ml Drops.susp, 1 DROP OS QID 08/06/16 Latanoprost (LATANOPROST) 2.5 Ml Drops, 1 DROP OU QHS 08/06/16 Ketorolac Tromethamine (ACULAR) 5 Ml Drops, 1 DROP OS QID 08/06/16 Saw [place] Fruit (SAW PALMETTO) 450 Mg Capsule, PO QHS, CAPSULE 08/06/16 Acetaminophen (TYLENOL EXTRA STRENGTH) 500 Mg Tablet, 1 TAB PO Q6H PRN for pain, TAB 01/19/16 Cholecalciferol (Vitamin D3) (VITAMIN D3) 1,000 Unit Tablet, 1 TAB PO QDAY, TAB 01/19/16 Lamotrigine (LAMICTAL) 200 Mg Tablet, 1 TAB PO QDAY 01/19/16 Fingolimod (GILENYA) 0.5 Mg Cap, 1 CAP PO QDAY, CAP 01/19/16 Diazepam (DIAZEPAM) 5 Mg Tablet, 0.5-1 TAB PO QDAY PRN for MILD TO MODERATE PAIN, #15 TAB 01/19/16 Allergies: Coded Allergies: aspirin (Verified Allergy, Mild, 11/05/18) father's temp drops 6-7 degrees penicillin G (Verified Allergy, Unknown, 11/05/18) Patient History: FH: Parkinson's disease FATHER FH: arthritis MOTHER FH: cystic fibrosis BROTHER OR SISTER FH: stroke FATHER Hx Smoking: Yes Smoking Status: Current: Some Days Smoker Exposure to Second Hand Smoke?: No Caffeine Intake: Coffee, Tea Caffeine/Cups Per Day: 4x/week Hx Alcohol Use: No Hx Substance Use Disorder: No Social Drug Use: Never Review of Systems Constitutional: No Fever, No Chills Neurological: Weakness Eyes: No Vision Change Cardiovascular: No Chest Pain, No Palpitations Respiratory: No Shortness of Breath, No Cough Gastrointestinal: No Nausea, No Vomiting, No Diarrhea, No Abdominal Pain Genitourinary: Urinary Incontinence; No Dysuria Musculoskeletal: Impaired Mobility Psychiatric: Depression, Anxiety Exam Vital Signs Vital Signs Date Time Temp Pulse Resp B/P (MAP) Pulse Ox O2 Delivery O2 Flow Rate FiO2 11/05/18 18:47 103.0 96 18 128/93 (105) 95 Room Air General Appearance: Alert, Awake Neuro: Other (weakness in virtually all groups with hyperreflexia/increased tone in both lower extremities/less upper) Eyes: PERRLA ENT: Oropharynx Clear (mucosa dry), Other (abrasions over lower mid-forehead) Neck: No Masses Cardiovascular: Regular Rate and Rhythm, No Edema, No JVD Respiratory: Clear to Auscultation Chest: No Tenderness GI: Abd Soft and Non-Tender : No CVA Tenderness Lymph: No Adenopathy Extremities: Warm, Perfused Integumentary: Other (multiple abrasions over both lower extremities especially around the knees) Psych: Alert & Oriented X3 Medical Decision Making Data Points Result Diagram: 11/05/18 1144 11/05/18 1144 Item Value Date Time Albumin 4.8 g/dl 11/05/18 1144 Total Protein 7.6 g/dl 11/05/18 1144 Total Creatine Kinase 2425 U/L H 11/05/18 1144 Alkaline Phosphatase 146 U/L H 11/05/18 1144 Alanine Aminotransferase (ALT/SGPT) 62 U/L H 11/05/18 1144 Aspartate Amino Transf (AST/SGOT) 68 U/L H 11/05/18 1144 Total Bilirubin 1.2 mg/dl 11/05/18 1144 Calcium Level 9.9 mg/dl 11/05/18 1144 Lactate 2.0 mmol/L 11/05/18 1144 Urine Mucus None /HPF 11/05/18 1219 Urine Hyaline Casts Few /LPF 11/05/18 1219 Urine Bacteria Negative /HPF 11/05/18 1219 Urine Squamous Epithelial Cells None /LPF 11/05/18 1219 Urine WBC 34 /HPF 11/05/18 1219 Urine RBC 4 /HPF 11/05/18 1219 Urine Leukocyte Esterase Trace H 11/05/18 1219 Urine Urobilinogen Negative mg/dL 11/05/18 1219 Urine Bilirubin Negative 11/05/18 1219 Urine Nitrite Negative 11/05/18 1219 Urine Blood Moderate 11/05/18 1219 Urine Ketones 80 mg/dL H 11/05/18 1219 Urine Glucose (UA) Negative mg/dL 11/05/18 1219 Urine Protein 100 mg/dL 11/05/18 1219 Urine Specific [place] 1.019 11/05/18 1219 Urine pH 5.0 pH 11/05/18 1219 Urine Clarity Clear 11/05/18 1219 Urine Color Yellow 11/05/189 EKG / Imaging Imaging PATIENT NAME: Mina Paige : 1960 MR: [id number] V: [id number] EXAM DATE: [id number] ORDERING PHYSICIAN: MARCIN SHARMA TECHNOLOGIST: Location: [facility] [place] Patient: Mina Paige : 1960 Visit/Account:[id number] Date of Sevice: 11/05/2018 CT CHEST ABDOMEN PELVIS W/CON HISTORY: Fall, ADDITIONAL HISTORY: None. TECHNIQUE: Following administration of IV contrast axial images acquired through the chest abdomen and pelvis during the portal venous phase. Coronal and sagittal reformatting was also performed.Dose Lowering Technique One of the following dose optimization techniques was utilized in the performance of this exam: Automated exposure control; adjustment of the mA and/or kV according to the patient's size; or use of an iterative reconstruction technique. Specific details can be referenced in the facility's radiology CT exam operational policy. CONTRAST: 75 mL Isovue-370 COMPARISON: June 12, 2011 FINDINGS: CHEST: Lungs/Pleura: Negative. Mediastinum/lymph nodes: Negative. Heart/vessels: Very mild coronary artery calcifications Bones/soft tissues: Negative ABDOMEN AND PELVIS: Hepatobiliary: Cholelithiasis although no evidence of biliary ductal dilatation Spleen: Negative. Pancreas: Negative. Adrenals: Negative. Kidneys ureters and bladder : There are extrarenal pelves bilaterally. There is a lobular contour to both kidneys. There is a 1.3 cm cyst in the medial lower pole of the right kidney. This mild bladder wall thickening Genitalia: Postsurgical changes from a penile prosthesis GI: The colon is very redundant. There is a moderate amount of fecal material throughout the colon which can be seen with constipation. Postsurgical changes at the GE junction from a fundoplication Vessels/spaces/nodes: Mild to moderate atherosclerotic calcifications t hroughout the abdomen and pelvis Bones/soft tissues: There is a mild compression fracture involving the super endplate of L1. This is of indeterminate age however there are marginal osteophytes suggesting this could be an old injury. Clinical correlation needed Additional findings: None pertinent. IMPRESSION: Cholelithiasis although no evidence of biliary ductal dilatation Mild compression fracture involving the superior endplate of L1. This is of indeterminate age however there are marginal osteophytes suggesting this could be an old injury. Very redundant colon with a moderate amount of fecal material which can be seen with constipation Mild bladder wall thickening Additional chronic findings as described Report Dictated By: Magda Aviles MD at 11/05/2018 1:53 PM Report E-Signed By: Magda Aviles MD at 11/05/2018 2:09 PM WSN:[email or web address] PATIENT NAME: Mina Paige : 1960 MR: [id number] V: [id number] EXAM DATE: [id number] ORDERING PHYSICIAN: MARCIN SHARMA TECHNOLOGIST: Location: [facility] [place] Patient: Mina Paige : 1960 Visit/Account:[id number] Date of Sevice: 11/05/2018 EXAMINATION: CT head without IV contrast HISTORY: Fall COMPARISON: 10/24/2017. TECHNIQUE: Contiguous axial images were obtained from the skull base to the vertex without intravenous contrast. Sagittal and coronal reformatted images are also submitted. One of the following dose optimization techniques was utilized in the performance of this exam: Automated exposure control; adjustment of the mA and/or kV according to the patient's size; or use of an iterative reconstruction technique. Specific details can be referenced in the facility's radiology CT exam operational policy. FINDINGS: Brain volume: Stable. Ventricles: Stable. Acute ischemic changes: None. Hemorrhage: None. Masses/edema: None. [place]-white: Negative. White matter: Low-density changes noted in the hemispheric, predominantly periventricular white matter. Vessels: Calcified plaque of both carotid siphons. Extra-axial: Negative. Calvarium/scalp: Negative. Skull base/visualized face: Negative. Visualized sinuses/orbits: Negative. IMPRESSION: 1. No acute intracranial findings. 2. Atherosclerotic disease. 3. Chronic white matter changes. Report Dictated By: HEAVENLY MUNOZ at 11/05/2018 1:48 PM Report E-Signed By: HEAVENLY MUNOZ at 11/05/2018 1:54 PM WSN:[id number] PATIENT NAME: Mina Paige : 1960 MR: [id number] V: [id number] EXAM DATE: ORDERING PHYSICIAN: MARCIN SHARMA TECHNOLOGIST: Location: [facility] [place] Patient: Mina Paige : 1960 Visit/Account:[id number] Date of Sevice: 11/05/2018 EXAMINATION: CT thoracic spine without IV contrast CT lumbar spine without IV contrast HISTORY: Fall COMPARISON: None. TECHNIQUE: Axial images were obtained through the thoracic and lumbar spine. Coronal and sagittal reformatted images were obtained from the axial source data. One of the following dose optimization techniques was utilized in the performance of this exam: Automated exposure control; adjustment of the mA and/or kV according to the patient's size; or use of an iterative reconst ruction technique. Specific details can be referenced in the facility's radiology CT exam operational policy. FINDINGS: Alignment: Normal. Vertebral bodies: The thoracic vertebral bodies are intact. There is a compression deformity of the L1 vertebral body with height loss anteriorly. Posterior elements: Negative. Hardware: None. Disc Spaces: The thoracic disc spaces are intact. Soft tissues: The bladder is incompletely visualized but demonstrate a thickened wall. There is also a cystic, peripherally calcified mass anterior to the bladder, incompletely visualized. Enhancement: Negative. IMPRESSION: 1. Compression deformity of the superior anterior aspect of the L1 vertebral [place] of uncertain chronicity, this may be acute. This was not present on 06/08/2011. 2. No acute fracture in the thoracic spine. No thoracolumbar malalignment. 3. The bladder is incompletely visualized but demonstrate a thickened wall, may be related to chronic retention or bowel obstruction. 4. Cystic, peripherally calcified mass anterior to the bladder, incompletely visualized, however grossly similar compared with 06/08/2011. Results were discussed with MARCIN SHARMA at 11/05/2018 2:46 PM. Report Dictated By: HEAVENLY MUNOZ at 11/05/2018 2:33 PM Report E-Signed By: HEAVENLY MUNOZ at 11/05/2018 2:48 PM WSN:[email or web address] Assessment and Plan Problems: (1) Fall Status: Acute Assessment & Plan: He has had multiple falls recently. This is probably due to his MS, acute infection, dehydration. Will treat those conditions and have PT/OT see as well. (2) Urinary tract infection Status: Acute Assessment & Plan: UA and culture has been obtained in the ER. Will use IV Rocephin 1gm IV q24hrs and modify based on culture results. He does have chronic urinary incontinence. Will evaluate for possible urinary retention, but not obvious on CT scan. (3) Dehydration Status: Acute Assessment & Plan: Due to decreased intake. Will give generous IV fluids. Watch labs/UOP. (4) Compression fracture of L1 vertebra Status: Acute Assessment & Plan: Unsure of when this occurred. Almost certainly happened in one of his falls. He is not terribly symptomatic at this time. Will work on mobility, symptom control. (5) Multiple sclerosis Status: Chronic Assessment & Plan: Chronic. Taryn silva have an exacerbation due to the acute illness. Will treat as above. He has been managed with the fingolimod. Will continue with same for now. Will have PT/OT see him. (6) Diabetes mellitus, type 2 Status: Chronic Assessment & Plan: Will place on ADA diet, monitor glucoses and use SSI as needed. Will hold his metformin for a minimum of 48 hours as he had IV contrast for CT scan. (7) Anxiety and depression Status: Chronic Assessment & Plan: Continue Lexapro and Remeron. (8) Benign hypertension Status: Chronic Assessment & Plan: Will continue his metoprolol for now (with hold parameters) and hold the lisinopril and amlodipine. Monitor. Venous Thromboembolism Antithrombotics Is Pt On Any Antithrombotics?: Yes Exam Sepsis Risk: No Definite Risk Problem Qualifiers (1) Fall: Encounter type: initial encounter Qualified Codes: W19.XXXA - Unspecified fall, initial encounter (2) Urinary tract infection: Urinary tract infection type: acute cystitis Hematuria presence: without hematuria Qualified Codes: N30.00 - Acute cystitis without hematuria (3) Compression fracture of L1 vertebra: Encounter type: initial encounter Qualified Codes: S32.010A - Wedge compression fracture of first lumbar vertebra, initial encounter for closed fracture TYLER BABB MD Nov 05, 2018 17:48
[2018-11-05] MEDS: LIDOCAINE 5% PATCH TP SCH (17:50)
[2018-11-05] MEDS: INSULIN HUM LISPRO 100 UN/ML 3 ML VIAL SUBQ PRN ×2 (17:52→22:12)
[2018-11-05] MEDS: NS(*) 0.9% 1000 ML BAG 1,000 ML IV PRN (18:30)
[2018-11-05 18:47] VITALS: BP 128/93
[2018-11-05 18:57] VITALS: BP 151/90
[2018-11-05 19:00] VITALS: BP 176/85
[2018-11-05] MEDS: ACETAMINOPHEN 325 MG TAB PO PRN (19:00)
[2018-11-05 19:30] VITALS: BP 165/87
[2018-11-05] MEDS: GABAPENTIN 300 MG CAP PO SCH (21:00)
[2018-11-05] MEDS: MIRTAZAPINE 15 MG TAB PO SCH (21:00)
[2018-11-05] MEDS: PATCH REMOVAL 1 EA TP SCH (21:00)
[2018-11-05] MEDS: LATANOPRO 0.005% OP SOLN 2.5ML OU SCH (21:00)
[2018-11-05 23:18] VITALS: BP 162/83
[2018-11-05] MEDS ORDERED: VANCOMYCIN(*) 1 GM VIAL 1 GM, VANCOMYCIN (*) 0.5 GM VIAL 0.5 GM in NS(*) 0.9% 250 ML BA... IVPB ONE (23:30)
[2018-11-05] MEDS ORDERED: VANCOMYCIN 0.5 GM VIAL ONE (23:44)
[2018-11-05] MEDS ORDERED: VANCOMYCIN 1 GM VIAL ONE (23:44)
[2018-11-05] MEDS ORDERED: WATER STERILE(*) 10 ML VIAL 20 ML ONE (23:44)
[2018-11-05] MEDS ORDERED: NS(*) 0.9% 250 ML BAG 250 ML ONE (23:44)
[2018-11-06 03:44] VITALS: BP 160/87
[2018-11-06 06:05] LABS: PLATELET COUNT, AUTOMATED 139 K/uL (150-450)
[2018-11-06 07:30] VITALS: BP 166/92
[2018-11-06] MEDS: NS(*) 0.9% 1000 ML BAG 1,000 ML IV PRN ×2 (07:50→22:28)
[2018-11-06] MEDS ORDERED: FINGOLIMOD 0.5 MG PO SCH (09:00)
[2018-11-06] MEDS: LIDOCAINE 5% PATCH TP SCH (09:46)
[2018-11-06] MEDS: ESCITALOPRAM OXALATE 10 MG TAB PO SCH (09:46)
[2018-11-06] MEDS: ENOXAPARIN 40 MG/0.4ML SYR SC SCH (09:46)
[2018-11-06] MEDS: METOPROLOL SUCC XL 50 MG TABCR 50 MG TAB.ER.24H PO SCH (09:46)
[2018-11-06] MEDS: GABAPENTIN 300 MG CAP PO SCH ×3 (09:46→20:23)
[2018-11-06] MEDS: lamoTRIgine 100 MG TAB PO SCH (09:47)
--- NOTE | 2018-11-06 09:48 | Pharmacy Note ---
Vancomycin Management Note Vanco Dosing Note Pharmacy Services Pharmacokinetic Dosing Consult, Vancomycin Pharmacy has been consulted for dosing and monitoring of vancomycin for 58 yo male for UTI. Pertinent Past Medical History: MS, Type II Diabetes Antibiotics prior to admission; no Additional Antimicrobials: Rocephin 1 gm IV q24h Patient Information: Height (cm): 175.26 Actual Body Weight (ABW): 76 kg Pertinent Lab Tests WHITE BLOOD COUNT 14 on 11/05/18; 10.4 on 11/06/18 NEUTROPHILS 90.6 on 11/05/18; 88.3 on 11/05/18 SCR 1.4 on 11/05/18; 1.2 on 11/05/18 Culture Results: BLOOD NGTD URINE NGTD Assessment: CrCl 66 ml/min using IBW Renal function is improving. Vancomycin Monitoring Assessment Goal Vancomycin Trough Level: 15-20 Plan: 1) Vancomycin 25 mg/kg loading dose (based on ABW): 1500 mg IV x 1 (approx 20 mg/kg) 2) Vancomycin maintenance dose (based on ABW): 1250 mg IV q12h 3) Vancomycin monitoring: Trough to be drawn before 4th dose on 11/07/18 1100. Pharmacy will continue to monitor daily and adjust regimen as appropriate. Thank you for the consult. YONATHAN SHRESTHA Nov 06, 2018 09:48
[2018-11-06 10:48] VITALS: BP 156/88
[2018-11-06] MEDS ORDERED: MIRT-22 PO (12:07)
[2018-11-06] MEDS ORDERED: LAMO250T2 PO (12:07)
[2018-11-06] MEDS ORDERED: POTASSIUM CHL 20 MEQ TABCR PO ONE (12:10)
--- NOTE | 2018-11-06 12:12 | Hospitalist Progress Note ---
Subjective Progress Notes Subjective He has no focal complaints. He spiked a fever overnight. Physical Exam Vital Signs Date Time Temp Pulse Resp B/P (MAP) Pulse Ox O2 Delivery O2 Flow Rate FiO2 11/06/18 10:48 99.0 80 20 156/88 (110) 93 Room Air 11/05/18 21:00 1.0 Intake and Output 11/06/18 07:04 Intake Total 1100 ml Balance 1100 ml Intake Oral 0 ml IV Total 1100 ml # Voids 4 General Appearance: Alert, Awake, No Acute Distress Neuro: Other (He knows where he is and why he is here, but doesn't seem know his history very well and maybe a bit confused) Cardiovascular: Regular Rate and Rhythm Respiratory: Clear to Auscultation GI: Other (soft, non-distended, mild tenderness over the suprapubic area) : Other (No erythema or tenderness in the penis or scrotom. He does have a firm mass in the left proximal scrotom c/w the pump for the penile implant. Firm mass felt in the shaft of the penis as well c/w the penile implant) Result Diagram: 11/06/18 0535 11/06/18 1105 Assessment and Plan Problems: (1) Sepsis Status: Acute Assessment & Plan: He presented with weakness and falls over the 3 days prior to admission. He is growing GPC in both blood cultures. Presumably it is a UTI/prostatitis but UCx is <10,000 col/ml. He doesn't have any other obvious source of infection. On Rocephin and Vancomycin, see below. BP/P stable. Bicarbonate is lower today, so will recheck lactate and bicarbonate later today. (2) Urinary tract infection Status: Acute Assessment & Plan: UA with pyuria. Culture showing less than 10,000 col/ml. He does have the penile implant with a reservoir behind the suprapubic area and the pump in the left scrotum. On exam, the penis and scrotum are not tender/swollen/erythematous. On IV Rocephin 1gm IV q24hrs and Vancomycin. Will modify based on culture results. He does have chronic urinary incontinence, so Gifford placed with 100cc of PVR. (3) Elevated CPK Status: Acute Assessment & Plan: Secondary to falls and dehydration. Hydrating and following. (4) Fall Status: Acute Assessment & Plan: He has had multiple falls recently. This is probably due to his MS, acute infection, dehydration. Will treat those conditions and have PT/OT see as well. (5) Dehydration Status: Acute Assessment & Plan: Due to decreased intake. Hydrating. Watch labs/UOP. Will give 20mEq of oral KCL and follow. (6) Compression fracture of L1 vertebra Status: Acute Assessment & Plan: Unsure of when this occurred. Almost certainly happened in one of his falls. He is not terribly symptomatic at this time. Will work on mobility, symptom control. (7) Multiple sclerosis Status: Chronic Assessment & Plan: Chronic. Taryn silva have an exacerbation due to the acute illness. Will treat as above. He has been managed with the fingolimod, which will be held because of active infection. Will have PT/OT see him. (8) Diabetes mellitus, type 2 Status: Chronic Assessment & Plan: Will place on ADA diet, monitor glucoses and use SSI as needed. Will hold his metformin for a minimum of 48 hours as he had IV contrast for CT scan. (9) Anxiety and depression Status: Chronic Assessment & Plan: Continue Lexapro and Remeron. (10) Benign hypertension Status: Chronic Assessment & Plan: Will continue his metoprolol for now (with hold parameters) and hold the lisinopril and amlodipine. Monitor. Exam Sepsis Risk: No Definite Risk Problem Qualifiers (1) Urinary tract infection: Urinary tract infection type: acute cystitis Hematuria presence: without hematuria Qualified Codes: N30.00 - Acute cystitis without hematuria (2) Fall: Encounter type: initial encounter Qualified Codes: W19.XXXA - Unspecified fall, initial encounter (3) Compression fracture of L1 vertebra: Encounter type: initial encounter Qualified Codes: S32.010A - Wedge compression fracture of first lumbar vertebra, initial encounter for closed fracture COLTEN AMOS MD Nov 06, 2018 12:12
[2018-11-06] MEDS: VANCOMYCIN(*) 1 GM VIAL 1 GM, VANCOMYCIN (*) 0.5 GM VIAL 0.25 GM in NS(*) 0.9% 250 ML B... IVPB SCH (12:19)
--- NOTE | 2018-11-06 13:10 | NUR ---
Physical Therapy Impression PT eval complete. Recommendations pending progress, however, Pt will likely require short-term subacute rehab. Pt requires Mod A x2 for bed mobility and Mod A x2 to stand. Pt unable to ambulate at this time. Physical Therapy Goals 1. Mod I bed mobility. 2. Mod I transfers. 3. Mod I gait x 20' with Rollator walker. Patient's Goals
[2018-11-06] MEDS: cefTRIAXone(*) 1 GM VIAL 1 GM in NS(*) 0.9% 100 ML MINI-BAG 100 ML IVPB SCH (14:07)
[2018-11-06 14:25] VITALS: BP 176/90
[2018-11-06] MEDS: ACETAMINOPHEN 325 MG TAB PO PRN (14:35)
[2018-11-06 15:34] VITALS: Ht 175.3 cm; Wt 75.3 kg
--- NOTE | 2018-11-06 18:45 | Antimicrobial Stewardship ---
Antimicrobial Time Out Antimicrobial Stewardship MD Service: Hospitalist Indications: UTI Antimicrobial Used vanco and ceftriaxone Start Date: Nov 05, 2018 Culture Results: Yes (gram pos cocci in blood - UA unclear) Eligible for PO Conversion Eligable for PO Conversion: No Reviewed with Provider Reviewed w/ Provider on Rounds: No Comments Comments Patient admitted for weakness and suspected UTI. WBC 14 and tmax of 103 on 11/05. Started on vanco and ceftriaxone for coverage of possible UTI and gram+ cocci found in blood. Exact source of infection unclear, continue therapy and monitor for clinical improvement. Pending further culture of UA. CHANDU FERNANDO Nov 06, 2018 18:45
[2018-11-06 19:16] VITALS: BP 144/86
[2018-11-06] MEDS: MIRTAZAPINE 15 MG TAB PO SCH (20:23)
[2018-11-06] MEDS: LATANOPRO 0.005% OP SOLN 2.5ML OU SCH (20:23)
[2018-11-06] MEDS: INSULIN HUM LISPRO 100 UN/ML 3 ML VIAL SUBQ PRN (20:24)
[2018-11-06] MEDS: PATCH REMOVAL 1 EA TP SCH (21:00)
[2018-11-07] MEDS: VANCOMYCIN(*) 1 GM VIAL 1 GM, VANCOMYCIN (*) 0.5 GM VIAL 0.25 GM in NS(*) 0.9% 250 ML B... IVPB SCH (00:06)
[2018-11-07 03:38] VITALS: BP 175/88
[2018-11-07 05:43] LABS: PLATELET COUNT, AUTOMATED 120 K/uL (150-450)
[2018-11-07 08:02] VITALS: BP 142/87
--- NOTE | 2018-11-07 08:56 | NUR ---
Occupational Therapy Impression Pt. performed bed mobility (supine to sit at EOB) with Min A x1. Pt. performed stand step pivot transfer from EOB to tiesha-chair with CGA on room air.Continue with POC. Occupational Therapy Goals 1) Pt will be Min A UB/LB dressing. 2) Pt will be Min A toilet task. 3) Pt will be Min A grooming/hygiene. Patient's Goal
[2018-11-07] MEDS: lamoTRIgine 100 MG TAB PO SCH (10:21)
[2018-11-07] MEDS: ENOXAPARIN 40 MG/0.4ML SYR SC SCH (10:21)
[2018-11-07] MEDS: POTASSIUM CHL 20 MEQ TABCR PO SCH ×2 (10:21→17:49)
[2018-11-07] MEDS: GABAPENTIN 300 MG CAP PO SCH ×3 (10:21→20:57)
[2018-11-07] MEDS: ESCITALOPRAM OXALATE 10 MG TAB PO SCH (10:21)
[2018-11-07] MEDS: METOPROLOL SUCC XL 50 MG TABCR 50 MG TAB.ER.24H PO SCH (10:21)
[2018-11-07] MEDS: LIDOCAINE 5% PATCH TP SCH (10:22)
[2018-11-07 13:20] VITALS: BP 141/82
[2018-11-07] MEDS: ACETAMINOPHEN 325 MG TAB PO PRN (13:25)
--- NOTE | 2018-11-07 14:01 | NUR ---
Physical Therapy Impression Pt able to stand from the chair with CGA x 2 reps. Pt requires Min A to stand from the toilet with Min A to maintain balance while trying to manage clothing after a BM. Pt unable to safely manage clothing without losing balance and requires Max A for clothing management. Pt able to ambulate 5'x3 with 3 seated rest breaks using RW and CGA. Pt with improved strength and tolerance to activity but is not yet at baseline level. Recommend short-term subacute rehab. Physical Therapy Goals 1. Mod I bed mobility. 2. Mod I transfers. 3. Mod I gait x 20' with Rollator walker. Patient's Goals
--- NOTE | 2018-11-07 15:31 | NUR ---
LT101 requested at request of Yue Madison for potential admit to [facility] 11/08.
--- NOTE | 2018-11-07 15:39 | Hospitalist Progress Note ---
Subjective Progress Notes Subjective 58M admitted for sepsis. SARAH overnight, would like the Gifford removed if possible due to discomfort. Patient Complains of: Neurological: No: Weakness Cardiovascular: No: Chest Pain Gastrointestinal: No Nausea, No Vomiting Physical Exam Vital Signs Date Time Temp Pulse Resp B/P (MAP) Pulse Ox O2 Delivery O2 Flow Rate FiO2 11/07/18 13:20 98.0 78 20 141/82 (101) 92 Room Air 11/06/18 19:57 1.0 Intake and Output 11/07/18 07:04 Intake Total 1721 ml Output Total 2325 ml Balance -604 ml Intake Oral 360 ml IV Total 1361 ml Output Urine Total 2325 ml # Voids 2 # Bowel Movements 2 General Appearance: Alert, Awake, No Acute Distress Cardiovascular: Normal Rhythm & Peripheral Pulses Respiratory: No Respiratory Distress GI: Other (mild epigastric tenderness) Musculoskeletal: No Weakness/Pain Extremities: Soft and Non Tender, Warm, Pulses, Perfused Result Diagram: 11/07/1852911/07/18529 Assessment and Plan Problems: (1) Sepsis Status: Acute Assessment & Plan: He presented with weakness and falls over the 3 days prior to admission. He is growing Strep Dysgalactiae in blood cultures. Presumably source is a UTI/prostatitis but UCx is <10,000 col/ml, GI tract is other reservoir of this species bacteria. He doesn't have any other obvious source of infection. On Rocephin , see below. BP/P stable. Vancomycin was discontinued 08.16 based on C&S data. Repeat blood culture 08.17 in am. (2) Urinary tract infection Status: Acute Assessment & Plan: UA with pyuria. Culture showing less than 10,000 col/ml. He does have the penile implant with a reservoir behind the suprapubic area and the pump in the left scrotum. No signs infection on exam in penis/scrotal area. On IV Rocephin 1gm IV q24hrs. Will modify based on culture results. He does have chronic urinary incontinence. (3) Elevated LFTs Assessment & Plan: LFT elevated on admission, they have continued to increase. CT shows stones/sludge in gallbladder without obstruction. Further evaluation after treatment of bacteremia, or if clinical picture changes. (4) Elevated CPK Status: Acute Assessment & Plan: Secondary to falls and dehydration. Hydrating and follow ing. (5) Fall Status: Acute Assessment & Plan: He has had multiple falls recently. This is probably due to his MS, acute infection, dehydration. Will treat those conditions and have PT/OT see as well. (6) Dehydration Status: Acute Assessment & Plan: Due to decreased intake. Hydrating. Watch labs/UOP. Will give 20mEq of oral KCL and follow. (7) Compression fracture of L1 vertebra Status: Acute Assessment & Plan: Unsure of when this occurred. Almost certainly happened in one of his falls. He is not terribly symptomatic at this time. Will work on mobility, symptom control. (8) Multiple sclerosis Status: Chronic Assessment & Plan: Chronic. Taryn silva have an exacerbation due to the acute illness. Will treat as above. He has been managed with the fingolimod, which will be held because of active infection. Will have PT/OT see him. (9) Diabetes mellitus, type 2 Status: Chronic Assessment & Plan: Will place on ADA diet, monitor glucoses and use SSI as needed. Will hold his metformin for a minimum of 48 hours as he had IV contrast for CT scan. (10) Anxiety and depression Status: Chronic Assessment & Plan: Continue Lexapro and Remeron. (11) Benign hypertension Status: Chronic Assessment & Plan: Will continue his metoprolol for now (with hold parameters) and hold the lisinopril and amlodipine. Monitor. Exam Sepsis Risk: No Definite Risk Problem Qualifiers (1) Urinary tract infection: Urinary tract infection type: acute cystitis Hematuria presence: without hematuria Qualified Codes: N30.00 - Acute cystitis without hematuria (2) Fall: Encounter type: initial encounter Qualified Codes: W19.XXXA - Unspecified fall, initial encounter (3) Compression fracture of L1 vertebra: Encounter type: initial encounter Qualified Codes: S32.010A - Wedge compression fracture of first lumbar vertebra, initial encounter for closed fracture DEBORAH CHOE DO Nov 07, 2018 15:39
[2018-11-07] MEDS: cefTRIAXone(*) 1 GM VIAL 1 GM in NS(*) 0.9% 100 ML MINI-BAG 100 ML IVPB SCH (15:48)
--- NOTE | 2018-11-07 15:59 | NUR ---
ECF Referral - received referral, per Slime Landa RN TCN confirmed inpatient admission with Marcie Quiñonez RN on 11/05. Therapy notes and conversation with GLENDA Murrieta indicate patient will qualify for skilled rehab services once his qualifying stay of 3 midnights is met. PASRR completed, triggered LT101. Chetna ALBERTO requested LT101 for probable admit tomorrow. Can be admitted once medically cleared.
[2018-11-07 16:45] VITALS: BP 146/88
[2018-11-07] MEDS: INSULIN HUM LISPRO 100 UN/ML 3 ML VIAL SUBQ PRN ×2 (16:45→20:57)
[2018-11-07 19:24] VITALS: BP 164/82
[2018-11-07] MEDS: MIRTAZAPINE 15 MG TAB PO SCH (20:57)
[2018-11-07] MEDS: LATANOPRO 0.005% OP SOLN 2.5ML OU SCH (20:58)
[2018-11-07] MEDS: PATCH REMOVAL 1 EA TP SCH (21:00)
[2018-11-08 03:28] VITALS: BP 184/96
[2018-11-08 06:38] LABS: PLATELET COUNT, AUTOMATED 140 K/uL (150-450)
--- NOTE | 2018-11-08 07:17 | NUR ---
see morning labs for glucose level Addendum: 11/08/18 at 0717 by BOONE WASHINGTON RN Amended: Links added.
[2018-11-08 07:22] VITALS: BP 171/105
[2018-11-08] MEDS: POTASSIUM CHL 20 MEQ TABCR PO SCH ×2 (09:41→17:20)
[2018-11-08] MEDS: GABAPENTIN 300 MG CAP PO SCH ×3 (09:41→21:06)
[2018-11-08] MEDS: lamoTRIgine 100 MG TAB PO SCH (09:41)
[2018-11-08] MEDS: ESCITALOPRAM OXALATE 10 MG TAB PO SCH (09:41)
[2018-11-08] MEDS: ENOXAPARIN 40 MG/0.4ML SYR SC SCH (09:43)
[2018-11-08] MEDS: LIDOCAINE 5% PATCH TP SCH (09:44)
[2018-11-08] MEDS: METOPROLOL SUCC XL 50 MG TABCR 50 MG TAB.ER.24H PO SCH (09:44)
--- NOTE | 2018-11-08 10:15 | Hospitalist Progress Note ---
Subjective Progress Notes Subjective This patient was admitted for weakness and suspected UTI. He had no acute changes overnight. Patient Complains of: Cardiovascular: No: Chest Pain Respiratory: No: Shortness of Breath Physical Exam Vital Signs Date Time Temp Pulse Resp B/P (MAP) Pulse Ox O2 Delivery O2 Flow Rate FiO2 11/08/18 07:27 97 Room Air 11/08/18 07:22 98.7 72 12 171/105 (127) 11/06/18 19:57 1.0 Intake and Output 11/08/18 07:04 Intake Total 1168 ml Output Total 400 ml Balance 768 ml Intake Oral 420 ml IV Total 748 ml Output Urine Total 400 ml # Voids 6 # Bowel Movements 3 Cardiovascular: Regular Rate and Rhythm Respiratory: Clear to Auscultation Result Diagram: 11/08/1851311/08/18513 Assessment and Plan Problems: (1) Sepsis Status: Acute Assessment & Plan: He did have a fever and elevated WBC. His cultures have been positive and Streptococcus dysgalactiae. He has been on treatment with ceftriaxone. The fever has resolved and WBC is now normal. Repeat cultures are pending. An echocardiogram is ordered. (2) Urinary tract infection Status: Acute Assessment & Plan: He does have the penile implant with a reservoir behind the suprapubic area and the pump in the left scrotum. There are no signs infection on exam in penis/scrotal area. His urine showed trace leukocytes and his culture grew less than 10,000 colonies of Staphylococcus epidermidis. He is on ceftriaxone as above. (3) Elevated LFTs Assessment & Plan: He does have an obstructive pattern on his liver labs. He is also now complaining of upper abdominal pain. A CT scan showed stones in the gallbladder, but no ductal dilation. An ultrasound is ordered. (4) Elevated CPK Status: Acute Assessment & Plan: Secondary to falls and dehydration. It has decreased with IV fluids. (5) Fall Status: Acute Assessment & Plan: He has had multiple falls recently. This is probably due to his MS, acute infection, dehydration. He is being referred to [facility]. (6) Dehydration Status: Acute Assessment & Plan: Resolved with IV fluids. (7) Compression fracture of L1 vertebra Status: Acute Assessment & Plan: Secondary to fall. (8) Multiple sclerosis Status: Chronic Assessment & Plan: He is on chronic treatment with fingolimod, which has been held because of active infection. (9) Diabetes mellitus, type 2 Status: Chronic Assessment & Plan: He is on chronic treatment with metformin, which has been on hold secondary to contrast. He is on sliding scale level #2. (10) Anxiety and depression Status: Chronic Assessment & Plan: He is on chronic treatment with Lexapro and Remeron. (11) Benign hypertension Status: Chronic Assessment & Plan: He is on chronic treatment with metoprolol, lisinopril, and amlodipine. Exam Sepsis Risk: No Definite Risk Problem Qualifiers (1) Urinary tract infection: Urinary tract infection type: acute cystitis Hematuria presence: without hematuria Qualified Codes: N30.00 - Acute cystitis without hematuria (2) Fall: Encounter type: initial encounter Qualified Codes: W19.XXXA - Unspecified fall, initial encounter (3) Compression fracture of L1 vertebra: Encounter type: initial encounter Qualified Codes: S32.010A - Wedge compression fracture of first lumbar vertebra, initial encounter for closed fracture LOLITA COOLEY DO Nov 08, 2018 10:15
[2018-11-08 11:31] VITALS: BP 151/90
[2018-11-08] MEDS: LISINOPRIL 20 MG TAB PO SCH (11:36)
[2018-11-08] MEDS: amLODIPine BESYL(*) 5 MG TAB PO SCH (11:36)
[2018-11-08] MEDS: INSULIN HUM LISPRO 100 UN/ML 3 ML VIAL SUBQ PRN ×2 (11:37→21:06)
[2018-11-08] MEDS: cefTRIAXone(*) 1 GM VIAL 1 GM in NS(*) 0.9% 100 ML MINI-BAG 100 ML IVPB SCH (14:35)
--- NOTE | 2018-11-08 14:35 | NUR ---
Physical Therapy Impression Pt tolerated ambulation from BR x 10' with FWW to access bed. Pt required cues both verbal and tactile to complete turn at side of bed before attempting to sit. When pt did sit, he was perched at the very edge, as he would not attempt to scoot further up in bed prior to sitting. Pt was able to scoot back and up after a brief rest period. Pt would benefit from further rehab to address safety awareness techniques and fall prevention strategies to incorporate into his home routine. Physical Therapy Goals 1. Mod I bed mobility. 2. Mod I transfers. 3. Mod I gait x 20' with Rollator walker. Patient's Goals
[2018-11-08 15:51] VITALS: BP 146/69
--- NOTE | 2018-11-08 16:31 | RADIOLOGY IMAGING REPORT ---
FACILITY: [facility] [place] PATIENT NAME: Mina Paige : 1960 MR: [id number] V: [id number] EXAM DATE: ORDERING PHYSICIAN: LOLITA COOLEY TECHNOLOGIST: Location: Patient: Mina Paige : 1960 Visit/Account:[id number] Date of Sevice: 11/08/2018 US ABD LIMITED ULTRASOUND HISTORY: abd tenderness, elevated labs COMPARISON: None. FINDINGS: Gallbladder: Multiple fixed shadowing gallstones. No gallbladder wall thickening. Negative sonographi c Gambino's sign.. Bile ducts: There is no biliary ductal dilation with the CBD measuring 3 mm. Liver: Negative. Pancreas: Obscured by bowel gas Right kidney: No hydronephrosis. 1.2 cm simple cyst. Upper abdominal aorta and IVC: Patent. Ascites: None visualized. Other findings: None significant IMPRESSION: 1. Fixed shadowing gallstones without findings to suggest acute cholecystitis. No biliary ductal dila tation. Report Dictated By: Rayshawn Larson MD at 11/08/2018 4:22 PM Report E-Signed By: Rayshawn Larson MD at 11/08/2018 4:24 PM WSN:[id number]
[2018-11-08 19:07] VITALS: BP 159/93
[2018-11-08] MEDS: PATCH REMOVAL 1 EA TP SCH (21:00)
[2018-11-08] MEDS: LATANOPRO 0.005% OP SOLN 2.5ML OU SCH (21:06)
[2018-11-08] MEDS: MIRTAZAPINE 15 MG TAB PO SCH (21:06)
[2018-11-08 23:29] VITALS: BP 168/93
[2018-11-09 03:08] VITALS: BP 179/95
[2018-11-09 03:24] VITALS: BP 168/82
[2018-11-09 07:13] VITALS: BP 182/92
[2018-11-09] MEDS: POTASSIUM CHL 20 MEQ TABCR PO SCH (08:13)
[2018-11-09] MEDS: amLODIPine BESYL(*) 5 MG TAB PO SCH (08:25)
[2018-11-09] MEDS: ESCITALOPRAM OXALATE 10 MG TAB PO SCH (08:25)
[2018-11-09] MEDS: ENOXAPARIN 40 MG/0.4ML SYR SC SCH (08:25)
[2018-11-09] MEDS: lamoTRIgine 100 MG TAB PO SCH (08:38)
[2018-11-09] MEDS: LISINOPRIL 20 MG TAB PO SCH (08:38)
[2018-11-09] MEDS: GABAPENTIN 300 MG CAP PO SCH (08:38)
[2018-11-09] MEDS: METOPROLOL SUCC XL 50 MG TABCR 50 MG TAB.ER.24H PO SCH (08:38)
[2018-11-09] MEDS ORDERED: CEFT1VIA63 IV (08:48)
[2018-11-09] MEDS ORDERED: ENOX40DI9 SC (08:54)
[2018-11-09] MEDS ORDERED: POTA20TA94 PO (08:54)
[2018-11-09] MEDS ORDERED: MIRT-22 PO (08:54)
[2018-11-09] MEDS ORDERED: INSU100V24 SUBQ (08:54)
[2018-11-09] MEDS ORDERED: ACET-2007 PO (08:54)
[2018-11-09] MEDS ORDERED: LIDO700A19 TP (08:54)
[2018-11-09] MEDS: LIDOCAINE 5% PATCH TP SCH (09:00)
--- NOTE | 2018-11-09 09:12 | Hospitalist Depart ---
Discharge Summary Reason for Hosp/Final Diag: (1) Sepsis Status: Acute Hospital Course & Plan: He did have a fever and elevated WBC count. His blood cultures did grow Streptococcus dysgalactiae. He was placed on treatment with IV ceftriaxone. The fever has resolved and WBC count did normalize. Repeat blood cultures are negative thus far. Echocardiogram final report is pending, but preliminary report showed no obvious vegetations. He will be transferred to ECF to complete a full course of antibiotics and continue PT/OT. (2) Urinary tract infection Status: Acute Hospital Course & Plan: He does have the penile implant with a reservoir behind the suprapubic area and a pump in the left scrotum. There are no signs infection on exam in penis/scrotal area. CT scan was unremarkable. His urine showed trace leukocytes and his culture grew less than 10,000 colonies of Staphylococcus epidermidis. He is on IV ceftriaxone as above. (3) Elevated LFTs Hospital Course & Plan: He does have an obstructive pattern on his liver labs. He did complain of occasional upper abdominal pain. A CT scan showed stones in the gallbladder, but no ductal dilation. Ultrasound showed the same without evidence of acute cholecystitis. We discussed this with Mr. Sanchez and he seems to understand very well. He will follow up with his primary care (and possibly general surgery) to recheck labs and discuss any further evaluation/treatment. (4) Elevated CPK Status: Acute Hospital Course & Plan: Secondary to falls and dehydration. It has decreased/returned towards normal with IV fluids. (5) Fall Status: Acute Hospital Course & Plan: He has had multiple falls recently. This is probably due to his MS, acute infection, dehydration. He was referred to sn[facility] and [facility]/OT and antibiotics as noted above (6) Dehydration Status: Acute Hospital Course & Plan: Resolved with IV fluids. (7) Compression fracture of L1 vertebra Status: Acute Hospital Course & Plan: Secondary to fall. (8) Multiple sclerosis Status: Chronic Hospital Course & Plan: He is on chronic treatment with fingolimod, which has been held because of active infection. It will be resumed in near future. (9) Diabetes mellitus, type 2 Status: Chronic Hospital Course & Plan: He is on chronic treatment with metformin, which has been on hold secondary to contrast. He was placed on sliding scale level #2. The metformin will be restarted at this time. (10) Anxiety and depression Status: Chronic Hospital Course & Plan: He is on chronic treatment with Lexapro and Remeron. (11) Benign hypertension Status: Chronic Hospital Course & Plan: He is on chronic treatment with metoprolol, lisinopril, and amlodipine. Departure Weight (Pounds): 166 Weight (Ounces): 8.0 Result Diagram: 11/08/18 0514 11/09/18 0509 Item Value Date Time Hemoglobin 15.6 g/dL 11/05/18 1144 Hematocrit 45.2 % 11/05/18 1144 Platelet Count 170 K/uL 11/05/18 1144 Lactate 2.0 mmol/L 11/05/18 1144 Albumin 4.8 g/dl 11/05/18 1144 Total Protein 7.6 g/dl 11/05/18 1144 Total Creatine Kinase 2425 U/L H 11/05/18 1144 Alkaline Phosphatase 146 U/L H 11/05/18 1144 Alanine Aminotransferase (ALT/SGPT) 62 U/L H 11/05/18 1144 Aspartate Amino Transf (AST/SGOT) 68 U/L H 11/05/18 1144 Total Bilirubin 1.2 mg/dl 11/05/18 1144 Calcium Level 9.9 mg/dl 11/05/18 1144 Random Glucose 149 mg/dl H 11/05/18 1144 Glomerular Filtration Rate Calc 52.1 11/05/18 1144 Creatinine 1.40 mg/dl H 11/05/18 1144 Blood Urea Nitrogen 20 mg/dl 11/05/18 1144 Carbon Dioxide Level 17 mmol/L L 11/05/18 1144 Chloride Level 104 mmol/L 11/05/18 1144 Potassium Level 4.2 mmol/L 11/05/18 1144 Sodium Level 142 mmol/L 11/05/18 1144 Total Creatine Kinase 2022 U/L H 11/06/18 0535 Total Creatine Kinase 1353 U/L H 11/06/18 1105 Total Creatine Kinase 892 U/L H 11/07/18 0530 Albumin 3.3 g/dl L 11/09/18 0509 Total Protein 5.8 g/dl L 11/09/18 0509 Alkaline Phosphatase 309 U/L H 11/09/18 0509 Alanine Aminotransferase (ALT/SGPT) 395 U/L H 11/09/18 0509 Aspartate Amino Transf (AST/SGOT) 188 U/L H 11/09/18 0509 Total Bilirubin 0.5 mg/dl 11/09/18 0509 Calcium Level 9.3 mg/dl 11/09/18 0509 Urine Mucus None /HPF 11/05/18 1219 Urine Hyaline Casts Few /LPF 11/05/18 1219 Urine Bacteria Negative /HPF 11/05/18 1219 Urine Squamous Epithelial Cells None /LPF 11/05/18 1219 Urine WBC 34 /HPF 11/05/18 1219 Urine RBC 4 /HPF 11/05/18 1219 Urine Leukocyte Esterase Trace H 11/05/18 1219 Urine Urobilinogen Negative mg/dL 11/05/18 1219 Urine Nitrite Negative 11/05/18 1219 Urine Bilirubin Negative 11/05/18 1219 Urine Blood Moderate 11/05/18 1219 Urine Ketones 80 mg/dL H 11/05/18 1219 Urine Glucose (UA) Negative mg/dL 11/05/18 1219 Urine Protein 100 mg/dL 11/05/18 1219 Urine Specific [place] 1.019 11/05/18 1219 Urine pH 5.0 pH 11/05/18 1219 Urine Clarity Clear 11/05/189 Urine Color Yellow 11/05/189 [facility] *LIVE* [address] [place] [address] ENA NICHOLE M.D., DIRECTOR OF LABORATORY SERVICES DEBORAH SMITH M.D., PATHOLOGIST RUN DATE: 11/06/18 Specimen Inquiry Report PAGE 1 RUN TIME: 0950 ----- ------- PATIENT: SVETLANA SANCHEZ Radha ACCT: [id number] LOC: MED U: [id number] AGE/SX: 58/M ROOM: [facility]8 RE11/05/[address]: TYLER BABB MD : 1960 BED: 268 DIS: STATUS: ADM IN TLOC: SPEC #: [id number] JUAN: 11/05/18 STATUS: RES REQ #: [id number] RECD: 11/05/[address]: MARCIN SHARMA SOURCE: BLOOD ENTR: 11/05/[address] [facility] DR: NI EMERY MD [facility]: ORDERED: BCGS, CULT BLOOD Procedure Result Verified BLOOD CULTURE GRAM STAIN Final 11/05/18-2320 GROWTH IN BOTH THE AEROBIC AND ANAEROBIC BOTTLES GRAM POSITIVE COCCI SEEN CALLED TO DK QUINTANA RN 11/05 AT 2315 BLOOD CULTURE Preliminary 11/06/18-5924 Organism 1 GRAM POSITIVE COCCI GROWTH PRESENT IN BOTH THE AEROBIC AND ANAEROBIC BOTTLES [facility] *LIVE* [address] [place] [address] ENA NICHOLE M.D., DIRECTOR OF LABORATORY SERVICES DEBORAH SMITH M.D., PATHOLOGIST RUN DATE: 11/08/18 Specimen Inquiry Report PAGE 1 RUN TIME: 912 PATIENT: SVETLANA SANCHEZ ACCT: [id number] LOC: MED U: [id number] AGE/SX: 58/M ROOM: [facility] RE11/05/[address]: TYLER BABB MD : 1960 BED: 268 DIS: STATUS: ADM IN TLOC: SPEC #: [id number] JUAN: 11/05/18 STATUS: RES REQ #: [id number] RECD: 11/05/[address] [facility] [address]: MARCIN SHARMA SOURCE: JAYDA ENTR: 11/05/18-[address]: NI EMERY MD [facility]: ORDERED: CULT URINE Procedure Result Verified URINE CULTURE Preliminary 11/08/18-912 Organism 1 STAPHYLOCOCCUS EPIDERMIDIS <10,000 COL/ML SUSCEPTIBILITY TO FOLLOW [facility] *LIVE* [address] [place] [address] ENA NICHOLE M.D., DIRECTOR OF LABORATORY SERVICES DEBORAH SMITH M.D., PATHOLOGIST RUN DATE: 11/07/18 Specimen Inquiry Report PAGE 1 RUN TIME: 0855 PATIENT: SVETLANA SANCHEZ ACCT: [id number] LOC: MED U: [id number] AGE/SX: 58/M ROOM: 2268 RE11/05/[address]: TYLER BABB MD : 1960 BED: 268 DIS: STATUS: ADM IN TLOC: SPEC #: [id number] JUAN: 11/05/18 STATUS: COMP REQ #: [id number] RECD: 11/05/[address] [facility] [address]: MARCIN SHARMAP SOURCE: BLOOD ENTR: 11/05/[address]: NI EMERY MD [facility]: ORDERED: BCGS, CULT BLOOD Procedure Result Verified BLOOD CULTURE GRAM STAIN Final 11/05/18-1 GROWTH IN BOTH THE AEROBIC AND ANAEROBIC BOTTLES GRAM POSITIVE COCCI SEEN CALLED TO DK QUINTANA RN 11/05 AT 2315 BLOOD CULTURE Final 11/07/18-0843 Organism 1 STREP DYSGALACTIAE/EQUISIMILIS GROWTH PRESENT IN BOTH THE AEROBIC AND ANAEROBIC BOTTLES STREP DYS M.I.C. RX --------- --- AMPICILLIN <=0.25 S CEFOTAXIME <=0.12 S CEFTRIAXONE <=0.12 S CLINDAMYCIN <=0.25 R ERYTHROMYCIN 2 R LINEZOLID <=2 S BENZYLPENICILLIN <=0.06 S VANCOMYCIN 0.5 [facility] [address] [place] [address] ENA NICHOLE M.D., DIRECTOR OF LABORATORY SERVICES DEBORAH SMITH M.D., PATHOLOGIST RUN DATE: 11/08/18 Specimen Inquiry Report PAGE 1 RUN TIME: 1001 PATIENT: SVETLANA SANCHEZ Radha ACCT: [id number] LOC: MED U: [id number] AGE/SX: 58/M ROOM: [facility] RE11/05/[address]: TYLER BABB MD : 1960 BED: 268 DIS: STATUS: ADM IN TLOC: SPEC #: [id number] JUAN: 11/08/18-050 STATUS: RES REQ #: [id number] RECD: 11/08/[address]: DEBORAH CHOE DO SOURCE: BLOOD PER ENTR: 11/07/18-[address]: TYLER BABB MD SPDC: NI EMERY MD ORDERED: CULT BLOOD Procedure Result Verified BLOOD CULTURE Preliminary 11/08/18-1000 NO GROWTH SO FAR, SET LATE. REINCUBATED [facility] *LIVE* [address] [place] [address] ENA NICHOLE M.D., DIRECTOR OF LABORATORY SERVICES DEBORAH SMITH M.D., PATHOLOGIST RUN DATE: 11/08/18 Specimen Inquiry Report PAGE 1 RUN TIME: 1001 PATIENT: SVETLANA SANCHEZ Radha ACCT: [id number] LOC: MED U: [id number] AGE/SX: 58/M ROOM: 2268 RE11/05/[address]: TYLER BABB MD : 1960 BED: 268 DIS: STATUS: ADM IN TLOC: SPEC #: [id number] JUAN: 11/08/18 STATUS: RES REQ #: [id number] RECD: 11/08/[address]: DEBORAH CHOE DO SOURCE: BLOOD PER ENTR: 11/07/18-[address] [facility] DR: TYLER BABB MD SPDC: NI EMERY MD ORDERED: CULT BLOOD Procedure Result Verified BLOOD CULTURE Preliminary 11/08/18-1000 NO GROWTH SO FAR, SET LATE. REINCUBATED - Imaging PATIENT NAME: Svetlana Sanchez : 1960 MR: [id number] V: [id number] EXAM DATE: ORDERING PHYSICIAN: MARCIN SHARMA TECHNOLOGIST: Location: [facility] [place] Patient: Svetlana Sanchez : 1960 Visit/Account:[id number] Date of Sevice: 11/05/2018 CT CHEST ABDOMEN PELVIS W/CON HISTORY: Fall, ADDITIONAL HISTORY: None. TECHNIQUE: Following administration of IV contrast axial images acquired through the chest abdomen and pelvis during the portal venous phase. Coronal and sagittal reformatting was also performed.Dose Lowering Technique One of the following dose optimization techniques was utilized in the performance of this exam: Automated exposure control; adjustment of the mA and/or kV according to the patient's size; or use of an iterative reconstruction technique. Specific details can be referenced in the facility's radiology CT exam operational policy. CONTRAST: 75 mL Isovue-370 COMPARISON: June 12, 2011 FINDINGS: CHEST: Lungs/Pleura: Negative. Mediastinum/lymph nodes: Negative. Heart/vessels: Very mild coronary artery calcifications Bones/soft tissues: Negative ABDOMEN AND PELVIS: Hepatobiliary: Cholelithiasis although no evidence of biliary ductal dilatation Spleen: Negative. Pancreas: Negative. Adrenals: Negative. Kidneys ureters and bladder : There are extrarenal pelves bilaterally. There is a lobular contour to both kidneys. There is a 1.3 cm cyst in the medial lower pole of the right kidney. This mild bladder wall thickening Genitalia: Postsurgical changes from a penile prosthesis GI: The colon is very redundant. There is a moderate amount of fecal material throughout the colon which can be seen with constipation. Postsurgical changes at the GE junction from a fundoplication Vessels/spaces/nodes: Mild to moderate atherosclerotic calcifications throughout the abdomen and pelvis Bones/soft tissues: There is a mild compression fracture involving the super endplate of L1. This is of indeterminate age however there are marginal osteophytes suggesting this could be an old injury. Clinical correlation needed Additional findings: None pertinent. IMPRESSION: Cholelithiasis although no evidence of biliary ductal dilatation Mild compression fracture involving the superior endplate of L1. This is of indeterminate age however there are marginal osteophytes suggesting this could be an old injury. Very redundant colon with a moderate amount of fecal material which can be seen with constipation Mild bladder wall thickening Additional chronic findings as described Report Dictated By: Magda Aviles MD at 11/05/2018 1:53 PM Report E-Signed By: Magda Aviles MD at 11/05/2018 2:09 PM WSN:AMICIVN PATIENT NAME: Svetlana Sanchez : 1960 MR: [id number] V: [id number] EXAM DATE: ORDERING PHYSICIAN: MARCIN SHARMA TECHNOLOGIST: Location: [facility] [place] Patient: Svetlana Sanchez : 1960 Visit/Account:[id number] Date of Sevice: 11/05/2018 EXAMINATION: CT thoracic spine without IV contrast CT lumbar spine without IV contrast HISTORY: Fall COMPARISON: None. TECHNIQUE: Axial images were obtained through the thoracic and lumbar spine. Coronal and sagittal reformatted images were obtained from the axial source data. One of the following dose optimization techniques was utilized in the performance of this exam: Automated exposure control; adjustment of the mA and/or kV according to the patient's size; or use of an iterative reconstruction technique. Specific details can be referenced in the facility's radiology CT exam operational policy. FINDINGS: Alignment: Normal. Vertebral bodies: The thoracic vertebral bodies are intact. There is a compression deformity of the L1 vertebral body with height loss anteriorly. Posterior elements: Negative. Hardware: None. Disc Spaces: The thoracic disc spaces are intact. Soft tissues: The bladder is incompletely visualized but demonstrate a thickened wall. There is also a cystic, peripherally calcified mass anterior to the bladder, incompletely visualized. Enhancement: Negative. IMPRESSION: 1. Compression deformity of the superior anterior aspect of the L1 vertebral body of uncertain chronicity, this may be acute. This was not present on 06/08/2011. 2. No acute fracture in the thoracic spine. No thoracolumbar malalignment. 3. The bladder is incompletely visualized but demonstrate a thickened wall, may be related to chronic retention or bowel obstruction. 4. Cystic, peripherally calcified mass anterior to the bladder, incompletely visualized, however grossly similar compared with 06/08/2011. Results were discussed with MARCIN SHARMA at 11/05/2018 2:46 PM. Report Dictated By: HEAVENLY MUNOZ at 11/05/2018 2:33 PM Report E-Signed By: HEAVENLY MUNOZ at 11/05/2018 2:48 PM WSN:RADHA-CHRISTIANO Condition: Improved Discharge: [facility] PT/OT Follow Up For: PT For Strengthening, OT For ADL's Follow-Up Labs: Finger Sticks (AC and HS) Time Spent: > 30 min Discharge Instructions Home Meds Active Scripts Insulin Lispro 100 Un/Ml Vial (HUMALOG 100 U/ML VIAL) 100 Unit/1 Ml Vial, 2-10 UNIT SUBQ SS PRN for SLIDING SCALE INSULIN for 10 Days, #10 VIAL Prov:TYLER BABB MD 11/09/18 Lidocaine (Lidocaine) 5 % Adh..patch, 1 EACH TP QDAY for 10 Days, #10 PATCH.24H Prov:TYLER BABB MD 11/09/18 Acetaminophen (MAPAP) 325 Mg Tablet, 650 MG PO Q6H PRN for FEVER for 10 Days, #10 TAB Prov:TYLER BABB MD 11/09/18 Mirtazapine (MIRTAZAPINE) 15 Mg Tablet, 15 MG PO QHS for 10 Days, #10 TAB Prov:TYLER BABB MD 11/09/18 Enoxaparin Sodium (ENOXAPARIN SODIUM) 40 Mg/0.4 Ml Disp.syrin, 40 MG SC Q24H for 10 Days, #10 SYR Prov:TYLER BABB MD 11/09/18 Potassium Chloride (POTASSIUM CHLORIDE) 20 Meq Tab.er.prt, 20 MEQ PO BIDBS for 10 Days, #10 TAB Prov:TYLER BABB MD 11/09/18 Ceftriaxone Sodium (CEFTRIAXONE) 1 Gm Vial, 1 GM IV Q24H for 10 Days, #10 VIAL Prov:TYLER BABB MD 11/09/18 Amlodipine Besylate (NORVASC) 10 Mg Tablet, 1 TAB PO QDAY, #90 TAB 3 Refills Prov:NI EMERY MD 10/14/18 Lisinopril (LISINOPRIL) 40 Mg Tablet, 1 TAB PO QDAY, #90 TAB 3 Refills Prov:NI EMERY MD 10/14/18 Escitalopram Oxalate (ESCITALOPRAM OXALATE) 20 Mg Tablet, 20 MG PO QDAY, #90 TAB 3 Refills Prov:NI EMERY MD 10/14/18 Metformin Hcl (METFORMIN HCL) 500 Mg Tablet, 2 TAB PO BID, #360 TAB 4 Refills Prov:NI EMERY MD 06/09/18 Metoprolol Succinate (METOPROLOL SUCCINATE) 50 Mg Tab.er.24h, 1 TAB PO QDAY, #90 TAB 3 Refills Prov:NI EMERY MD 05/27/18 Lovastatin (LOVASTATIN) 40 Mg Tablet, 1 TAB PO QHS, #90 TAB 1 Refill Prov:NI EMERY MD 05/20/18 Gabapentin (GABAPENTIN) 300 Mg Capsule, 300 MG PO TID, #270 CAPSULE 4 Refills Prov:NI EMERY MD 11/05/17 Reported Medications Mirtazapine (MIRTAZAPINE) 15 Mg Tablet, 0.5 TAB PO QHS 11/06/18 Lamotrigine (LAMOTRIGINE) 250 Mg Tab.er.24, 1 TAB PO QDAY 11/06/18 Latanoprost (LATANOPROST) 2.5 Ml Drops, 1 DROP OU QHS 08/06/16 Acetaminophen (TYLENOL EXTRA STRENGTH) 500 Mg Tablet, 1 TAB PO Q6H PRN for pain, TAB 01/19/16 Cholecalciferol (Vitamin D3) (VITAMIN D3) 1,000 Unit Tablet, 1 TAB PO QDAY, TAB 01/19/16 Fingolimod (GILENYA) 0.5 Mg Cap, 1 CAP PO QDAY, CAP 01/19/16 Discontinued Reported Medications Saw [place] Fruit (SAW PALMETTO) 450 Mg Capsule, PO QHS, CAPSULE 08/06/16 Prednisolone Acetate (PREDNISOLONE ACETATE) 5 Ml Drops.susp, 1 DROP OS QID 08/06/16 Ketorolac Tromethamine (ACULAR) 5 Ml Drops, 1 DROP OS QID 08/06/16 Lamotrigine (LAMICTAL) 200 Mg Tablet, 1 TAB PO QDAY 01/19/16 Diazepam (DIAZEPAM) 5 Mg Tablet, 0.5-1 TAB PO QDAY PRN for MILD TO MODERATE PAIN, #15 TAB 01/19/16 Discontinued Scripts Amantadine Hcl (AMANTADINE) 100 Mg Capsule, 100 MG PO BID, #180 CAPSULE 1 Refill Prov:NI EMERY MD 08/20/18 Mirtazapine (MIRTAZAPINE) 15 Mg Tablet, 1 TAB PO QHS, #90 TAB 3 Refills Prov:NI EMERY MD 02/04/18 Diet: Diabetic Activity: As Tolerated (with PT and OT) Special Instructions: He will be transferred to [facility]. He will be followed by the Hospitalist Service while on ECF. Venous Thromboembolism Antithrombotics Is Pt On Any Antithrombotics?: Yes Problem Qualifiers (1) Urinary tract infection: Urinary tract infection type: acute cystitis Hematuria presence: without hematuria Qualified Codes: N30.00 - Acute cystitis without hematuria (2) Compression fracture of L1 vertebra: Encounter type: initial encounter Qualified Codes: S32.010A - Wedge compression fracture of first lumbar vertebra, initial encounter for closed fracture TYLER BABB MD Nov 09, 2018 09:12
== END 2018-11-09 10:30 | disposition swing bed (61) | DRG 872 ==
LOC: ER 11:50 → MED 15:56
PROVIDERS: ADMIT Internal Medicine; ATTEND Internal Medicine
DX: A40.8 Other streptococcal sepsis (principal); S32.010A Wedge compression fracture of first lumbar vertebra, initial encounter for closed fracture; N30.00 Acute cystitis without hematuria; K80.80 Other cholelithiasis without obstruction; B95.4 Other streptococcus as the cause of diseases classified elsewhere; G35 Multiple sclerosis; E86.0 Dehydration; E11.9 Type 2 diabetes mellitus without complications; F41.8 Other specified anxiety disorders; I10 Essential (primary) hypertension; Z96.0 Presence of urogenital implants; Z23 Encounter for immunization; Z91.81 History of falling; Z79.84 Long term (current) use of oral hypoglycemic drugs; Z88.8 Allergy status to other drugs, medicaments and biological substances; W18.30XA Fall on same level, unspecified, initial encounter; Y92.009 Unspecified place in unspecified non-institutional (private) residence as the place of occurrence of the external cause
CPT/HCPCS: 36415; 36416; 70450; 71046; 71260; 72125; 72129; 72132; 74177; 76705; 81001; 82040; 82247; 82310; 82374; 82435; 82550; 82565; 82947; 82948; 83605; 84075; 84132; 84155; 84295; 84450; 84460; 84520; 85025; 87040; 87077; 87088; 87186; 90471; 90715; 93306; 96361; 96365; 96375; 97162; 97166; 99285; A4216; J0131; J0696; J1650; J3370; J7030; J7050; Q9967

== ENCOUNTER → 2018-11-05 | Outpatient (CLI) | payer MEDICARE, MEDICAID ==
[~2018-11-05] MED LIST changes: +ACET-2007 PO; +CEFT1VIA63 IV; +ENOX40DI9 SC; +INSU100V24 SUBQ; +LAMO250T2 PO; +LIDO700A19 TP; +POTA20TA94 PO
[2018-11-06 15:34] VITALS: BMI 24.7
== END ==
LOC: AMB 11:14
PROVIDERS: ATTEND Nurse Practitioner
DX: S09.90XA Unspecified injury of head, initial encounter (principal); W19.XXXA Unspecified fall, initial encounter
CPT/HCPCS: A0425; A0427

== ENCOUNTER 2018-11-09 10:30 | Inpatient (IN) | payer MEDICARE, MEDICAID ==
[2018-11-06 15:34] VITALS: Ht 175.3 cm; Wt 76.2 kg
[~2018-11-09] VITALS: Ht 175.3 cm; Wt 76.2 kg
[2018-11-09 10:28] VITALS: BP 138/85
[~2018-11-09 10:30] MED LIST changes: +ACET-2007 PO; +CEFT1VIA63 IV; +ENOX40DI9 SC; +INSU100V24 SUBQ; +LAMO250T2 PO; +LIDO700A19 TP; +POTA20TA94 PO
[2018-11-09] MEDS ORDERED: cefTRIAXone(*) 1 GM VIAL 1 GM in NS(*) 0.9% 100 ML MINI-BAG 100 ML IVPB SCH (11:07)
--- NOTE | 2018-11-09 11:11 | ECF H&P BLANK ---
[facility] H&P UPDATE History of Present Illness Chief Complaint Found on the floor by home health nurse History of Present Illness 58yo male with long history of MS with LE weakness, type 2 DM. He reports several falls over the past few weeks. He states he has noted increasing generalized weakness over that time. He is usually able to ambulate around his apartment and uses his power chair to go elsewhere outside the apartment. He has had poor appetite with decreased intake as well. He denied any fevers or chills. No N/V/diarrhea. He reports urinary incontinence, which is chronic, but denies dysuria or change in pattern. He denied any cough/dyspnea. No rashes, but has multiple abrasions on lower extremities. He does not recall exactly how he fell or how long he was on the floor. He was evaluated in the ER and found to have elevated CPK, possible UTI, dehydration, L1 compression fracture. He was recommended for admission. History Problems: (1) ADJUSTMENT DISORDER WITH MIXED ANXIETY AND DEPRESSED MOOD Status: Chronic (2) Bradycardia (3) Anxiety and depression Status: Chronic (4) Benign hypertension Status: Chronic (5) Hyperlipidemia Status: Chronic (6) Multiple sclerosis Status: Chronic (7) Diabetes mellitus, type 2 Status: Chronic (8) History of hernia repair Status: Resolved Home Meds Active Scripts Amlodipine Besylate (NORVASC) 10 Mg Tablet, 1 TAB PO QDAY, #90 TAB 3 Refills Prov:NI EMERY MD 10/14/18 Lisinopril (LISINOPRIL) 40 Mg Tablet, 1 TAB PO QDAY, #90 TAB 3 Refills Prov:NI EMERY MD 10/14/18 Escitalopram Oxalate (ESCITALOPRAM OXALATE) 20 Mg Tablet, 20 MG PO QDAY, #90 TAB 3 Refills Prov:NI EMERY MD 10/14/18 Amantadine Hcl (AMANTADINE) 100 Mg Capsule, 100 MG PO BID, #180 CAPSULE 1 Refill Prov:NI EMERY MD 08/20/18 Metformin Hcl (METFORMIN HCL) 500 Mg Tablet, 2 TAB PO BID, #360 TAB 4 Refills Prov:NI EMERY MD 06/09/18 Metoprolol Succinate (METOPROLOL SUCCINATE) 50 Mg Tab.er.24h, 1 TAB PO QDAY, #90 TAB 3 Refills Prov:NI EMERY MD 05/27/18 Lovastatin (LOVASTATIN) 40 Mg Tablet, 1 TAB PO QHS, #90 TAB 1 Refill Prov:NI EMERY MD 05/20/18 Mirtazapine (MIRTAZAPINE) 15 Mg Tablet, 1 TAB PO QHS, #90 TAB 3 Refills Prov:NI EMERY MD 02/04/18 Gabapentin (GABAPENTIN) 300 Mg Capsule, 300 MG PO TID, #270 CAPSULE 4 Refills Prov:NI EMERY MD 11/05/17 Reported Medications Prednisolone Acetate (PREDNISOLONE ACETATE) 5 Ml Drops.susp, 1 DROP OS QID 08/06/16 Latanoprost (LATANOPROST) 2.5 Ml Drops, 1 DROP OU QHS 08/06/16 Ketorolac Tromethamine (ACULAR) 5 Ml Drops, 1 DROP OS QID 08/06/16 Saw [place] Fruit (SAW PALMETTO) 450 Mg Capsule, PO QHS, CAPSULE 08/06/16 Acetaminophen (TYLENOL EXTRA STRENGTH) 500 Mg Tablet, 1 TAB PO Q6H PRN for pain, TAB 01/19/16 Cholecalciferol (Vitamin D3) (VITAMIN D3) 1,000 Unit Tablet, 1 TAB PO QDAY, TAB 01/19/16 Lamotrigine (LAMICTAL) 200 Mg Tablet, 1 TAB PO QDAY 01/19/16 Fingolimod (GILENYA) 0.5 Mg Cap, 1 CAP PO QDAY, CAP 01/19/16 Diazepam (DIAZEPAM) 5 Mg Tablet, 0.5-1 TAB PO QDAY PRN for MILD TO MODERATE PAIN, #15 TAB 01/19/16 Allergies: Coded Allergies: aspirin (Verified Allergy, Mild, 11/05/18) father's temp drops 6-7 degrees penicillin G (Verified Allergy, Unknown, 11/05/18) Patient History: FH: Parkinson's disease FATHER FH: arthritis MOTHER FH: cystic fibrosis BROTHER OR SISTER FH: stroke FATHER Hx Smoking: Yes Smoking Status: Current: Some Days Smoker Exposure to Second Hand Smoke?: No Caffeine Intake: Coffee, Tea Caffeine/Cups Per Day: 4x/week Hx Alcohol Use: No Hx Substance Use Disorder: No Social Drug Use: Never Review of Systems Constitutional: No Fever, No Chills Neurological: Weakness Eyes: No Vision Change Cardiovascular: No Chest Pain, No Palpitations Respiratory: No Shortness of Breath, No Cough Gastrointestinal: No Nausea, No Vomiting, No Diarrhea, No Abdominal Pain Genitourinary: Urinary Incontinence; No Dysuria Musculoskeletal: Impaired Mobility Psychiatric: Depression, Anxiety Exam Vital Signs Vital Signs Date Time Temp Pulse Resp B/P (MAP) Pulse Ox O2 Delivery O2 Flow Rate FiO2 11/05/18 18:47 103.0 96 18 128/93 (105) 95 Room Air General Appearance: Alert, Awake Neuro: Other (weakness in virtually all groups with hyperreflexia/increased tone in both lower extremities/less upper) Eyes: PERRLA ENT: Oropharynx Clear (mucosa dry), Other (abrasions over lower mid-forehead) Neck: No Masses Cardiovascular: Regular Rate and Rhythm, No Edema, No JVD Respiratory: Clear to Auscultation Chest: No Tenderness GI: Abd Soft and Non-Tender : No CVA Tenderness Lymph: No Adenopathy Extremities: Warm, Perfused Integumentary: Other (multiple abrasions over both lower extremities especially around the knees) Psych: Alert & Oriented X3 Medical Decision Making Data Points Result Diagram: 11/05/18 1144 11/05/18 1144 Item Value Date Time Albumin 4.8 g/dl 11/05/18 1144 Total Protein 7.6 g/dl 11/05/18 1144 Total Creatine Kinase 2425 U/L H 11/05/18 1144 Alkaline Phosphatase 146 U/L H 11/05/18 1144 Alanine Aminotransferase (ALT/SGPT) 62 U/L H 11/05/18 1144 Aspartate Amino Transf (AST/SGOT) 68 U/L H 11/05/18 1144 Total Bilirubin 1.2 mg/dl 11/05/18 1144 Calcium Level 9.9 mg/dl 11/05/18 1144 Lactate 2.0 mmol/L 11/05/18 1144 Urine Mucus None /HPF 11/05/18 1219 Urine Hyaline Casts Few /LPF 11/05/18 1219 Urine Bacteria Negative /HPF 11/05/18 1219 Urine Squamous Epithelial Cells None /LPF 11/05/18 1219 Urine WBC 34 /HPF 11/05/18 1219 Urine RBC 4 /HPF 11/05/18 1219 Urine Leukocyte Esterase Trace H 11/05/18 1219 Urine Urobilinogen Negative mg/dL 11/05/18 1219 Urine Bilirubin Negative 11/05/18 1219 Urine Nitrite Negative 11/05/18 1219 Urine Blood Moderate 11/05/18 1219 Urine Ketones 80 mg/dL H 11/05/18 1219 Urine Glucose (UA) Negative mg/dL 11/05/18 1219 Urine Protein 100 mg/dL 11/05/18 1219 Urine Specific [place] 1.019 11/05/18 1219 Urine pH 5.0 pH 11/05/18 1219 Urine Clarity Clear 11/05/18 1219 Urine Color Yellow 11/05/189 EKG / Imaging Imaging PATIENT NAME: Mina Paige : 1960 MR: [id number] V: [id number] EXAM DATE: [id number] ORDERING PHYSICIAN: MARCIN SHARMA TECHNOLOGIST: Location: [facility] Patient: Mina Paige : 1960 Visit/Account:[id number] Date of Sevice: 11/05/2018 CT CHEST ABDOMEN PELVIS W/CON HISTORY: Fall, ADDITIONAL HISTORY: None. TECHNIQUE: Following administration of IV contrast axial images acquired through the chest abdomen and pelvis during the portal venous phase. Coronal and sagittal reformatting was also performed.Dose Lowering Technique One of the following dose optimization techniques was utilized in the performance of this exam: Automated exposure control; adjustment of the mA and/or kV according to the patient's size; or use of an iterative reconstruction technique. Specific details can be referenced in the facility's radiology CT exam operational policy. CONTRAST: 75 mL Isovue-370 COMPARISON: June 12, 2011 FINDINGS: CHEST: Lungs/Pleura: Negative. Mediastinum/lymph nodes: Negative. Heart/vessels: Very mild coronary artery calcifications Bones/soft tissues: Negative ABDOMEN AND PELVIS: Hepatobiliary: Cholelithiasis although no evidence of biliary ductal dilatation Spleen: Negative. Pancreas: Negative. Adrenals: Negative. Kidneys ureters and bladder : There are extrarenal pelves bilaterally. There is a lobular contour to both kidneys. There is a 1.3 cm cyst in the medial lower pole of the right kidney. This mild bladder wall thickening Genitalia: Postsurgical changes from a penile prosthesis GI: The colon is very redundant. There is a moderate amount of fecal material throughout the colon which can be seen with constipation. Postsurgical changes at the GE junction from a fundoplication Vessels/spaces/nodes: Mild to moderate atherosclerotic calcifications throughout the abdomen and pelvis Bones/soft tissues: There is a mild compression fracture involving the super endplate of L1. This is of indeterminate age however there are marginal osteophytes suggesting this could be an old injury. Clinical correlation needed Additional findings: None pertinent. IMPRESSION: Cholelithiasis although no evidence of biliary ductal dilatation Mild compression fracture involving the superior endplate of L1. This is of indeterminate age however there are marginal osteophytes suggesting this could be an old injury. Very redundant colon with a moderate amount of fecal material which can be seen with constipation Mild bladder wall thickening Additional chronic findings as described Report Dictated By: Magda Aviles MD at 11/05/2018 1:53 PM Report E-Signed By: Magda Aviles MD at 11/05/2018 2:09 PM WSN:[id number] PATIENT NAME: Mina Paige : 1960 MR: [id number] V: [id number] EXAM DATE: ORDERING PHYSICIAN: MARCIN SHARMA TECHNOLOGIST: Location: [facility] Patient: Mina Paige : 1960 Visit/Account:[id number] Date of Sevice: 11/05/2018 EXAMINATION: CT head without IV contrast HISTORY: Fall COMPARISON: 10/24/2017. TECHNIQUE: Contiguous axial images were obtained from the skull base to the vertex without intravenous contrast. Sagittal and coronal reformatted images are also submitted. One of the following dose optimization techniques was utilized in the performance of this exam: Automated exposure control; adjustment of the mA and/or kV according to the patient's size; or use of an iterative reconstruction technique. Specific details can be referenced in the facility's radiology CT exam operational policy. FINDINGS: Brain volume: Stable. Ventricles: Stable. Acute ischemic changes: None. Hemorrhage: None. Masses/edema: None. [place]-white: Negative. White matter: Low-density changes noted in the hemispheric, predominantly periventricular white matter. Vessels: Calcified plaque of both carotid siphons. Extra-axial: Negative. Calvarium/scalp: Negative. Skull base/visualized face: Negative. Visualized sinuses/orbits: Negative. IMPRESSION: 1. No acute intracranial findings. 2. Atherosclerotic disease. 3. Chronic white matter changes. Report Dictated By: HEAVENLY MUNOZ at 11/05/2018 1:48 PM Report E-Signed By: HEAVENLY MUNOZ at 11/05/2018 1:54 PM WSN:[id number] PATIENT NAME: Mina Paige : 1960 MR: [id number] V: [id number] EXAM DATE: ORDERING PHYSICIAN: MARCIN SHARMA TECHNOLOGIST: Location: [facility] Patient: Mina Paige : 1960 Visit/Account:[id number] Date of Sevice: 11/05/2018 EXAMINATION: CT thoracic spine without IV contrast CT lumbar spine without IV contrast HISTORY: Fall COMPARISON: None. TECHNIQUE: Axial images were obtained through the thoracic and lumbar spine. Coronal and sagittal reformatted images were obtained from the axial source data. One of the following dose optimization techniques was utilized in the performance of this exam: Automated exposure control; adjustment of the mA and/or kV according to the patient's size; or use of an iterative reconstruction technique. Specific details can be referenced in the facility's radiology CT exam operational policy. FINDINGS: Alignment: Normal. Vertebral bodies: The thoracic vertebral bodies are intact. There is a compression deformity of the L1 vertebral body with height loss anteriorly. Posterior elements: Negative. Hardware: None. Disc Spaces: The thoracic disc spaces are intact. Soft tissues: The bladder is incompletely visualized but demonstrate a thickened wall. There is also a cystic, peripherally calcified mass anterior to the bladder, incompletely visualized. Enhancement: Negative. IMPRESSION: 1. Compression deformity of the superior anterior aspect of the L1 vertebral body of uncertain chronicity, this may be acute. This was not present on 06/08/2011. 2. No acute fracture in the thoracic spine. No thoracolumbar malalignment. 3. The bladder is incompletely visualized but demonstrate a thickened wall, may be related to chronic retention or bowel obstruction. 4. Cystic, peripherally calcified mass anterior to the bladder, incompletely visualized, however grossly similar compared with 06/08/2011. Results were discussed with MARCIN SHARMA at 11/05/2018 2:46 PM. Report Dictated By: HEAVENLY MUNOZ at 11/05/2018 2:33 PM Report E-Signed By: HEAVENLY MUNOZ at 11/05/2018 2:48 PM WSN:[id number] Assessment and Plan Problems: (1) Fall Status: Acute Assessment & Plan: He has had multiple falls recently. This is probably due to his MS, acute infection, dehydration. Will treat those conditions and have PT/OT see as well. (2) Urinary tract infection Status: Acute Assessment & Plan: UA and culture has been obtained in the ER. Will use IV Rocephin 1gm IV q24hrs and modify based on culture results. He does have chronic urinary incontinence. Will evaluate for possible urinary retention, but not obvious on CT scan. (3) Dehydration Status: Acute Assessment & Plan: Due to decreased intake. Will give generous IV fluids. Watch labs/UOP. (4) Compression fracture of L1 vertebra Status: Acute Assessment & Plan: Unsure of when this occurred. Almost certainly happened in one of his falls. He is not terribly symptomatic at this time. Will work on mobility, symptom control. (5) Multiple sclerosis Status: Chronic Assessment & Plan: Chronic. Taryn silva have an exacerbation due to the acute illness. Will treat as above. He has been managed with the fingolimod. Will continue with same for now. Will have PT/OT see him. (6) Diabetes mellitus, type 2 Status: Chronic Assessment & Plan: Will place on ADA diet, monitor glucoses and use SSI as needed. Will hold his metformin for a minimum of 48 hours as he had IV contrast for CT scan. (7) Anxiety and depression Status: Chronic Assessment & Plan: Continue Lexapro and Remeron. (8) Benign hypertension Status: Chronic Assessment & Plan: Will continue his metoprolol for now (with hold parameters) and hold the lisinopril and amlodipine. Monitor. Venous Thromboembolism Antithrombotics Is Pt On Any Antithrombotics?: Yes Exam Sepsis Risk: No Definite Risk Problem Qualifiers (1) Fall: Encounter type: initial encounter Qualified Codes: W19.XXXA - Unspecified fall, initial encounter (2) Urinary tract infection: Urinary tract infection type: acute cystitis Hematuria presence: without hematuria Qualified Codes: N30.00 - Acute cystitis without hematuria (3) Compression fracture of L1 vertebra: Encounter type: initial encounter Qualified Codes: S32.010A - Wedge compression fracture of first lumbar vertebra, initial encounter for closed fracture TYLER BABB MD Nov 05, 2018 17:48 <Electronically signed by TYLER BABB MD> D/ 21 47 47 [facility]/ CC: Patient will be admitted to [facility] for ongoing rehabilitative therapy and IV antibiotics. TYLER BABB MD Nov 09, 2018 11:11
[2018-11-09] MEDS: INSULIN HUM LISPRO 100 UN/ML 3 ML VIAL SUBQ PRN ×3 (12:53→20:52)
--- NOTE | 2018-11-09 13:41 | Consultant Pharmacy Review ---
Junior Assistant Manager Review Medication Review Do All Mecications have a Diag: Yes Other General Cautions Beers criteria does not apply for this patient. To continue Rocephin for 10 days. Pneumococcal Vaccine HX Pneumo Vac ([id number]): No HX Pneumo Vac (Pneumovax): YONATHAN Bull Nov 09, 2018 13:41
--- NOTE | 2018-11-09 14:00 | Antimicrobial Stewardship ---
Antimicrobial Stewardship Empiricly appropriate: Yes (On Rocephin for sepsis/UTI) Approriate Cultures done: Yes (Blood culture grew Strep Dsygalactiae/equisisimilis sensitive to Rocephin. Urine culture grew Staph epidermidis ) Renal/Hepatic dosing: Yes Reviewed for Drug Interaction: Yes Monitored for Toxicities: Yes Clinically stable/improving: Yes IV to PO Opportunity: No (To complete a full course of IV antibiotics) Determine standard duration: 14 days YONATHAN SHRESTHA Nov 09, 2018 14:00
[2018-11-09] MEDS: GABAPENTIN 300 MG CAP PO SCH ×2 (14:01→20:51)
[2018-11-09] MEDS: cefTRIAXone(*) 1 GM VIAL 1 GM in WATER STERILE(*) 10 ML VIAL 10 ML IVP SCH (14:11)
[2018-11-09 15:41] VITALS: BP 120/81
[2018-11-09] MEDS: metFORMIN HCL 500 MG TAB PO SCH (17:18)
[2018-11-09] MEDS: POTASSIUM CHL 20 MEQ TABCR PO SCH (17:18)
[2018-11-09] MEDS: MIRTAZAPINE 15 MG TAB PO SCH (20:51)
[2018-11-09] MEDS: PATCH REMOVAL 1 EA TP SCH (20:52)
[2018-11-09] MEDS: LATANOPRO 0.005% OP SOLN 2.5ML OU SCH (20:52)
[2018-11-10 07:37] VITALS: BP 122/77
[2018-11-10] MEDS: LIDOCAINE 5% PATCH TP SCH (09:00)
[2018-11-10] MEDS ORDERED: FINGOLIMOD 0.5 MG PO SCH (09:00)
[2018-11-10] MEDS: CHOLECALCIFEROL 1000 UNIT TAB PO SCH (09:01)
[2018-11-10] MEDS: METOPROLOL SUCC XL 50 MG TABCR 50 MG TAB.ER.24H PO SCH (09:01)
[2018-11-10] MEDS: metFORMIN HCL 500 MG TAB PO SCH ×2 (09:02→18:01)
[2018-11-10] MEDS: ESCITALOPRAM OXALATE 10 MG TAB PO SCH (09:02)
[2018-11-10] MEDS: POTASSIUM CHL 20 MEQ TABCR PO SCH ×2 (09:02→18:01)
[2018-11-10] MEDS: lamoTRIgine 100 MG TAB PO SCH (09:02)
[2018-11-10] MEDS: LISINOPRIL 20 MG TAB PO SCH (09:02)
[2018-11-10] MEDS: amLODIPine BESYL(*) 5 MG TAB PO SCH (09:02)
[2018-11-10] MEDS: GABAPENTIN 300 MG CAP PO SCH ×3 (09:03→20:40)
[2018-11-10] MEDS: ENOXAPARIN 40 MG/0.4ML SYR SC SCH (09:03)
[2018-11-10] MEDS: INSULIN HUM LISPRO 100 UN/ML 3 ML VIAL SUBQ PRN ×2 (09:04→20:40)
--- NOTE | 2018-11-10 13:03 | PT ECF NOTE ---
Type of Note: Initial Note Primary Medical Diagnosis: UTI, weakness, L1 compression fx, sepsis Physical Therapy Evaluation Date: 11/10/18 SUBJECTIVE: Prior Hospitalization: [facility] 11/05-11/09/18 Prior Level of Function: Pt reports Mod I with functional mobility using his power wheelchair for community distances and a Rollator walker for in-apartment. Prior Living Status: Apartment, Senior housing Community Services: Home health care nursing 3-5x/wk. Home health physical and occupational therapy were schedule to begin, however, Pt hospitalized Home Accessibility: Elevator Equipment Owned: Rollator, power wheelchair Medical Complications/Past Medical History: MS, please see [facility] for additional history Psychosocial Support: Pt lives alone, has home health, and a supportive sister who lives locally Pain Scale (0-10): Pt denies pain OBJECTIVE: Strength: Right Lower Extremity: grossly 2/5 Left Lower Extremity: grossly 2/5 Other Neuro findings: clonus noted in L LE Bed Mobility: not observed upon eval Transfers: CGA Assistive Device: Rollator Gait: CGA x 30'x2 Assistive device: Rollator ASSESSMENT: Pt presents with decreased independent with functional mobility compared to prior level of function. Pt will benefit from skilled PT for strengthening and functional mobility training in order to return to living independently. Problem List/Current Limitations: Decreased activity tolerance, Decreased strength, Decreased coordination, Decreased balance, Generalized weakness, Poor trunk/head control Short Term Goals: 1. Mod I bed mobility with use of rail. 2. Mod I transfers. 3. Mod I gait x 50' with RW. 4. Mod I power wheelchair mobility. 5. Mod I picking object up from floor. 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 If you have any questions, concerns, or comments about this report or plan, please contact me at . Shantelle Martínez, PT, DPT, GCS MTDD
[2018-11-10] MEDS: cefTRIAXone(*) 1 GM VIAL 1 GM in WATER STERILE(*) 10 ML VIAL 10 ML IVP SCH (14:04)
--- NOTE | 2018-11-10 15:48 | OT ECF NOTE ---
Type of Note: Initial Note Primary Medical Diagnosis: UTI, weakness, L1 compression fx, sepsis Occupational Therapy Evaluation Date: 11/10/18 SUBJECTIVE: Prior Hospitalization: [facility] 11/05/18-11/09/18 Prior Level of Function: Modified Independent with ADLs. 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 Uses RW occasionally to ambulate in the home. Utilizes power w/c for community mobility. Prior Living Status: Apartment Senior housing Elevator Community Services: Home health skilled nursing Accessibility: All needs on one level Tub/shower combination Equipment Owned: Walker Extended tub bench Medical Complications/Past Medical History: MS, please see [employer] for additional history Psychosocial Support: Pt lives alone, has home health, and a supportive sister who lives locally Pain Scale (0-10): No pain reported at evaluation OBJECTIVE: Strength: MMT: Right Left Shoulder Flexion [*] [*] Elbow Flexion [*] [*] Wrist Extension [*] [*] Roving Teller [*] [*] (5= normal, 4= good, 3= fair, 2= poor, 1= trace) ROM: Both upper extremities, Moderately limited Sensation: No paraesthesia reported Functional Transfer: Assistive Device: Front wheeled walker, Gait belt. Stand pivots. Transfer Ability: CGA ADL: Upper body dressing: Assistive device: Upper body dressing ability: SBA Lower body dressing: Assistive device: Lower body dressing ability: SBA Toileting: Assistive device: Toileting ability: SBA Grooming/hygiene: Assistive device: Grooming ability: N/T Bathing: Assistive device: Bathing ability: N/T Standardized Assessment: Luisa Index of Activities of Daily Livin/20 upon initial evaluation (11/10/18). ASSESSMENT: Mina presents to [facility] with decreased activity tolerance and balance s/p recent hospital admission. He will benefit from skilled OT services to optimize tolerance and strength for engagement in ADLs and decrease fall risk. Problem List/Current Limitations: Decreased activity tolerance Decreased strength Decreased ROM Generalized weakness Short Term Goals: 1) Pt will be Mod (I) UB/LB dressing. 2) Pt will be Mod (I) toileting task. 3) Pt will educated on fall prevention strategies. 4) Pt will be Independent UB HEP. 5) Pt Luisa Index of ADLs score will improve by two points. Patient Goals: Return home as soon as able. Rehabilitation Prognosis: Fair Barriers to Discharge: Pt reports increased falls as home, progression of MS PLAN: The patient will benefit from skilled occupational therapy services 5 times per week for 2 weeks including: Ther ex ADL training Safety training Ther act IADL training Transfer training Adaptive equip training Bed mobility Energy conservation Thank you for this referral. If you have any questions, concerns, or comments about this report or plan, please contact me at . Yuridia Hughes MS, OTR/L Occupational Therapist [facility]
[2018-11-10 17:10] VITALS: BP 133/76
[2018-11-10] MEDS: LATANOPRO 0.005% OP SOLN 2.5ML OU SCH (20:40)
[2018-11-10] MEDS: MIRTAZAPINE 15 MG TAB PO SCH (20:40)
[2018-11-10] MEDS: PATCH REMOVAL 1 EA TP SCH (21:00)
[2018-11-11] VITALS (11 sets, daily range): BP systolic 109–154; BP diastolic 68–90
[2018-11-11] MEDS: ACETAMINOPHEN 500 MG TAB PO PRN ×2 (08:24→20:58)
[2018-11-11] MEDS: LIDOCAINE 5% PATCH TP SCH (09:00)
[2018-11-11] MEDS: LISINOPRIL 20 MG TAB PO SCH (09:40)
[2018-11-11] MEDS: CHOLECALCIFEROL 1000 UNIT TAB PO SCH (09:40)
[2018-11-11] MEDS: lamoTRIgine 100 MG TAB PO SCH (09:40)
[2018-11-11] MEDS: POTASSIUM CHL 20 MEQ TABCR PO SCH ×2 (09:40→17:32)
[2018-11-11] MEDS: GABAPENTIN 300 MG CAP PO SCH ×3 (09:40→20:58)
[2018-11-11] MEDS: metFORMIN HCL 500 MG TAB PO SCH ×2 (09:40→17:32)
[2018-11-11] MEDS: amLODIPine BESYL(*) 5 MG TAB PO SCH (09:41)
[2018-11-11] MEDS: METOPROLOL SUCC XL 50 MG TABCR 50 MG TAB.ER.24H PO SCH (09:41)
[2018-11-11] MEDS: ESCITALOPRAM OXALATE 10 MG TAB PO SCH (09:41)
[2018-11-11] MEDS: ENOXAPARIN 40 MG/0.4ML SYR SC SCH (09:41)
--- NOTE | 2018-11-11 10:08 | SLP EVALUATION SUMMARY REPORT ---
INITIAL SPEECH THERAPY EVALUATION REPORT Cognitive Communication Assessment Patient Name: Mina Paige Date of Evaluation: 11/10/2018 Patient : 1960 Clinician: Nan Hughes M.S., CCC-TECHNICAL SUPERVISOR Treatment Dx: mild cognitive linguistic impairment BACKGROUND The patient is a 58-year-old male who presents to the [facility] for further rehabilitation due to persistent weakness following hospitalization at [facility] from 11/05/18-11/09/18 with an L1 compression fracture. The pt was referred for an ST assessment to analyze cognitive linguistic status secondary to staff concerns re: memory impairment, including response inconsistencies and signs of confusion. Primary Medical Dx: UTI, weakness, L1 compression fx, sepsis Past medical Hx: multiple sclerosis, please see [employer] for additional information Prior Level of Function: pt lives alone in a private residence, receives nursing services including [employer] assist 3-5x/wk for bathing and housekeeping. Pt has a supportive sister who lives in [place]. He reports independent manager financial services, assistance with medications (HH staff fills a pillbox, pt is responsible for remembering to take meds on time), and he utilizes power w/c for community mobility. COGNITIVE LINGUISTIC ASSESSMENT Overall Summary: Pt exhibits mild cognitive linguistic deficits most notably characterized by reduced short-term memory and word finding deficits. Information processing is also mildly delayed. Etiology is likely related to diagnosis of demyelinating disease (multiple sclerosis), possibly exacerbated by generalized weakness/fatigue and urinary tract infection. Cognitive linguistic assessment was completed at the bedside, including informal measures paired with the [employer] Cognitive Assessment (MoCA), Version 7.2. Pt achieved a total score of 24/30 (26/30=WNL), indicative of mild cognitive linguistic deficits. He exhibited the greatest difficulty with independent retention of novel information, but was stimulable for recall when provided with categorical cues. Informally, the pt further demonstrated difficulty remembering events of the day and specific temporal information (date, hospitalization timeline) in the absence of external cues. Word finding deficits were intermittently noted during interview procedures and throughout structured treatment tasks. Difficulty with word retrieval somewhat reduced fluency of verbal output. The pt ultimately produced relevant responses when presented with interview question items or assessment items; however, responses were frequently either delayed or filled with extraneous information in a suspected attempt to mask difficulty with speed of processing. Relative areas of strength were observed in environmental and situational orientation, mental abstraction, executive function skills, working memory, mental calculations, immediate recall, problem solving, and receptive language. At this time, the pt appears to be functioning mildly below baseline from a cognitive-linguistic standpoint. Cognitive linguistic deficits may impede consistent recall for management of medications, finances, and scheduling, and may limit active participation in conversations surrounding rehabilitative or medical plan of care due to difficulty verbal expression. Skilled ST services are warranted in a subacute rehab setting to continue assessment of cognitive linguistic skills and to provide patient and staff instruction in strategies to support identified areas of impairment for safe and successful transition to prior level of function. RECOMMENDATIONS 1. ST 3x/wk, 2wks PROGNOSIS: Fair. Verbalized willingness to participate. Insight into deficits. PLAN OF CARE Short Term Goals 1. Pt will recall functional, prospective information (e.g., medication administration times, bill dates, upcoming appointments) with independent use of external compensatory memory systems. 2. Pt will complete complex expressive language activities (i.e., complex conversation, description of medical needs) with min cues for use of word- finding strategies and correction of expressive language errors. Long-Term Goals 1. The patient will demonstrate functional cognitive communication status for safety and maximized independence upon anticipated d/c to prior living environment w/ appropriate access to home and community resources. Thank you for this referral. Please call [phone] to contact with any questions or concerns. Nan Hughes M.S., [facility]-TECHNICAL SUPERVISOR [*] MTDD
--- NOTE | 2018-11-11 10:42 | Medical Nutrition Therapy ---
Nutrition Anthropometrics Height (Inches): 69.00 Height (Calculated Centimeters: 175.336943 Weight (Pounds): 168 Weight (Calculated Kilograms): 76.204 BMI: 24.8 Anthony Nutrition Score: Adequate Anthony Nutrition Risk Score: 14 Dietary Referral Nutrition Risk Factors: Nutrition Risk Comment: Physical Findings Physical Appearance: WNR Skin Appearance Skin Appearance: Edema Edema Location Modifier: Right Edema Location: Lower Extremity Type of Edema: Degree of Edema: 1+ Gastrointestinal Symptoms GI Symtoms: Tube Present: Bowel Sounds: Recent Bowel Pattern: Incontinent Stool Characteristics: Nutrition/Food History Poor (Poor appetite, states usually happens in the summer) Breakfast: 2-3 meals plus snacks Nutritional Diagnosis Nutritional Risk Acuity 3: Fair Appetite Past Medical History: MS, depression, HLD, beinign HTN Nutritional Acuity: 3-Mild Energy Requirement: 2028 Protein Requirement: 76 (1g/kg) Fluid Requirement: 2028 (1mL/kcal) Nutrition Intervention: Teaching Nutrition Monitoring & Eval Nutrition Goals: Eat 75-100% Meal Nutrition Monitoring: BGs, weight, appetite/intake RD Patient Assessment Time: [address] Assessment Type: RD Re-Assessment Patient Nutrition Acuity: 3-Mild Follow Up Date: Nov 18, 2018 Nutritional Comment: 11/11/18: Spoke with Mina this am. Pt states has not been adhering to ADA at home very well. States has received diabetic nutrition education in the past. He is checking blood sugars 2-3x/week. Typical weight ranges from 165-170 lbs. Pt admit s/p fall, has MS. H& P reported poor appetite and intake lately. Pertinent PMH includes depression, DM2, and HLD. Pertinent active rx include humalog, metformin. Current supplements include cholecalciferol and KCL. Currently on ADA diet eating well. Mean preprandial BG since admit is ~135 and mean postprandial BG ~201. May need to increase meal time insulin to achieve ADA/Endocrine society target ranges. Will continue to monitor weight, intake, and BGs. Pt was interested in recieving additional diabetic diet education, will provide education prior to discharge.DONOVAN LICEA Nov 11, 2018 09:03
[2018-11-11] MEDS ORDERED: LIDOCAINE/SOD BICARB 8.4% SYR ID ONE (13:45)
[2018-11-11] MEDS: cefTRIAXone(*) 1 GM VIAL 1 GM in WATER STERILE(*) 10 ML VIAL 10 ML IVP SCH (14:30)
[2018-11-11] MEDS: PATCH REMOVAL 1 EA TP SCH (20:49)
[2018-11-11] MEDS: LATANOPRO 0.005% OP SOLN 2.5ML OU SCH (20:57)
[2018-11-11] MEDS: MIRTAZAPINE 15 MG TAB PO SCH (20:58)
[2018-11-11] MEDS: INSULIN HUM LISPRO 100 UN/ML 3 ML VIAL SUBQ PRN (20:59)
[2018-11-12] VITALS (10 sets, daily range): BP systolic 106–144; BP diastolic 22–84
[2018-11-12] MEDS: LIDOCAINE 5% PATCH TP SCH (09:00)
[2018-11-12] MEDS: CHOLECALCIFEROL 1000 UNIT TAB PO SCH (09:13)
[2018-11-12] MEDS: metFORMIN HCL 500 MG TAB PO SCH ×2 (09:13→17:43)
[2018-11-12] MEDS: amLODIPine BESYL(*) 5 MG TAB PO SCH (09:13)
[2018-11-12] MEDS: METOPROLOL SUCC XL 50 MG TABCR 50 MG TAB.ER.24H PO SCH (09:13)
[2018-11-12] MEDS: LISINOPRIL 20 MG TAB PO SCH (09:13)
[2018-11-12] MEDS: ESCITALOPRAM OXALATE 10 MG TAB PO SCH (09:13)
[2018-11-12] MEDS: ENOXAPARIN 40 MG/0.4ML SYR SC SCH (09:14)
[2018-11-12] MEDS: lamoTRIgine 100 MG TAB PO SCH (09:14)
[2018-11-12] MEDS: POTASSIUM CHL 20 MEQ TABCR PO SCH ×2 (09:14→17:43)
[2018-11-12] MEDS: GABAPENTIN 300 MG CAP PO SCH ×3 (09:14→20:55)
[2018-11-12] MEDS: ACETAMINOPHEN 500 MG TAB PO PRN (09:14)
[2018-11-12] MEDS: cefTRIAXone(*) 1 GM VIAL 1 GM in WATER STERILE(*) 10 ML VIAL 10 ML IVP SCH (13:55)
[2018-11-12 15:14] LABS: PLATELET COUNT, AUTOMATED 364 K/uL (150-450)
[2018-11-12] MEDS ORDERED: NS(*) 0.9% 1000 ML BAG 1,000 ML IV ONE (15:45)
--- NOTE | 2018-11-12 15:50 | Hospitalist Progress Note ---
Physical Exam Vital Signs Date Time Temp Pulse Resp B/P (MAP) Pulse Ox O2 Delivery O2 Flow Rate FiO2 11/12/18 13:46 97.7 66 17 111/73 (86) 99 Room Air Intake and Output 11/12/18 07:04 Intake Total 600 ml Balance 600 ml Intake Oral 600 ml # Voids 4 Result Diagram: 11/11/18 0500 Assessment and Plan Problems: (1) Cellulitis Status: Acute Assessment & Plan: Possible on left lower extremity. Upon admission on medical floor, appeared as if bruising to burrell region. Upon exam today, he appears to have increased redness and warm to touch. Will continue with Ceftriaxone. Check CBC again in the morning. (2) Sepsis Status: Acute Assessment & Plan: He did have a fever and elevated WBC. His blood cultures were positive with Streptococcus dysgalactiae. He has been on treatment with ceftriaxone. The fever has resolved and WBC is now normal. Repeat cultures done show no growth. An echocardiogram was ordered and was essentially normal. (3) Urinary tract infection Status: Acute Assessment & Plan: He does have the penile implant with a reservoir behind the suprapubic area and the pump in the left scrotum. There are no signs infection on exam in penis/scrotal area. His urine showed trace leukocytes and his culture grew less than 10,000 colonies of Staphylococcus epidermidis. He is on ceftriaxone as above. (4) Elevated LFTs Assessment & Plan: He did have an obstructive pattern on his liver labs. He had complaints of upper abdominal pain. A CT scan showed stones in the gallbladder, but no ductal dilation. An ultrasound showed no ductal dilation, but did show gallstones. Labs are trending downward. He will get repeat labs today. (5) Fall Status: Acute Assessment & Plan: He has had multiple falls recently. This is probably due to his MS, acute infection, dehydration. He is working with PT/OT on ECF. (6) Dehydration Status: Acute Assessment & Plan: Resolved with IV fluids. (7) Compression fracture of L1 vertebra Status: Acute Assessment & Plan: Secondary to fall. (8) Multiple sclerosis Status: Chronic Assessment & Plan: He is on chronic treatment with fingolimod, which has been held because of active infection. (9) Diabetes mellitus, type 2 Status: Chronic Assessment & Plan: He is on chronic treatment with metformin. He is on sliding scale level #2, ADA diet and AC/HS blood glucose monitoring. (10) Anxiety and depression Status: Chronic Assessment & Plan: He is on chronic treatment with Lexapro and Remeron. (11) Benign hypertension Status: Chronic Assessment & Plan: He is on chronic treatment with metoprolol, lisinopril, and amlodipine. CLAU VICTORIAP Nov 12, 2018 15:50
[2018-11-12] MEDS: PATCH REMOVAL 1 EA TP SCH (20:41)
[2018-11-12] MEDS: MIRTAZAPINE 15 MG TAB PO SCH (20:55)
[2018-11-12] MEDS: LATANOPRO 0.005% OP SOLN 2.5ML OU SCH (20:56)
[2018-11-12] MEDS: INSULIN HUM LISPRO 100 UN/ML 3 ML VIAL SUBQ PRN (20:57)
[2018-11-13 03:00] VITALS: BP 122/72
[2018-11-13 06:42] LABS: PLATELET COUNT, AUTOMATED 296 K/uL (150-450)
[2018-11-13 07:30] VITALS: BP 153/83
[2018-11-13] MEDS: LIDOCAINE 5% PATCH TP SCH (09:00)
[2018-11-13] MEDS: ENOXAPARIN 40 MG/0.4ML SYR SC SCH (09:05)
[2018-11-13] MEDS: ESCITALOPRAM OXALATE 10 MG TAB PO SCH (09:06)
[2018-11-13] MEDS: metFORMIN HCL 500 MG TAB PO SCH ×2 (09:06→17:35)
[2018-11-13] MEDS: lamoTRIgine 100 MG TAB PO SCH (09:06)
[2018-11-13] MEDS: CHOLECALCIFEROL 1000 UNIT TAB PO SCH (09:06)
[2018-11-13] MEDS: amLODIPine BESYL(*) 5 MG TAB PO SCH (09:07)
[2018-11-13] MEDS: LISINOPRIL 20 MG TAB PO SCH (09:07)
[2018-11-13] MEDS: METOPROLOL SUCC XL 50 MG TABCR 50 MG TAB.ER.24H PO SCH (09:07)
[2018-11-13] MEDS: POTASSIUM CHL 20 MEQ TABCR PO SCH ×2 (09:07→17:35)
[2018-11-13] MEDS: GABAPENTIN 300 MG CAP PO SCH ×3 (09:07→21:32)
[2018-11-13] MEDS: cefTRIAXone(*) 1 GM VIAL 1 GM in WATER STERILE(*) 10 ML VIAL 10 ML IVP SCH (13:35)
[2018-11-13 17:15] VITALS: BP 121/72
[2018-11-13] MEDS: INSULIN HUM LISPRO 100 UN/ML 3 ML VIAL SUBQ PRN (17:35)
[2018-11-13] MEDS: PATCH REMOVAL 1 EA TP SCH ×2 (21:00→21:33)
[2018-11-13] MEDS: LATANOPRO 0.005% OP SOLN 2.5ML OU SCH (21:32)
[2018-11-13] MEDS: MIRTAZAPINE 15 MG TAB PO SCH (21:32)
[2018-11-14 07:52] VITALS: BP 137/81
[2018-11-14] MEDS: METOPROLOL SUCC XL 50 MG TABCR 50 MG TAB.ER.24H PO SCH (08:53)
[2018-11-14] MEDS: lamoTRIgine 100 MG TAB PO SCH (08:53)
[2018-11-14] MEDS: CHOLECALCIFEROL 1000 UNIT TAB PO SCH (08:53)
[2018-11-14] MEDS: metFORMIN HCL 500 MG TAB PO SCH ×2 (08:54→17:02)
[2018-11-14] MEDS: ESCITALOPRAM OXALATE 10 MG TAB PO SCH (08:54)
[2018-11-14] MEDS: amLODIPine BESYL(*) 5 MG TAB PO SCH (08:54)
[2018-11-14] MEDS: GABAPENTIN 300 MG CAP PO SCH ×3 (08:54→20:55)
[2018-11-14] MEDS: POTASSIUM CHL 20 MEQ TABCR PO SCH ×2 (08:55→17:33)
[2018-11-14] MEDS: LISINOPRIL 20 MG TAB PO SCH (08:55)
[2018-11-14] MEDS: ENOXAPARIN 40 MG/0.4ML SYR SC SCH (08:56)
[2018-11-14] MEDS: LIDOCAINE 5% PATCH TP SCH (08:56)
[2018-11-14] MEDS: cefTRIAXone(*) 1 GM VIAL 1 GM in WATER STERILE(*) 10 ML VIAL 10 ML IVP SCH (13:28)
[2018-11-14 15:50] VITALS: BP 111/73
[2018-11-14] MEDS: INSULIN HUM LISPRO 100 UN/ML 3 ML VIAL SUBQ PRN (17:33)
[2018-11-14] MEDS: LATANOPRO 0.005% OP SOLN 2.5ML OU SCH (20:55)
[2018-11-14] MEDS: ACETAMINOPHEN 500 MG TAB PO PRN (20:55)
[2018-11-14] MEDS: MIRTAZAPINE 15 MG TAB PO SCH (20:55)
[2018-11-14] MEDS: PATCH REMOVAL 1 EA TP SCH (20:56)
[2018-11-14 21:53] VITALS: BP 115/65
== END 2018-11-15 00:01 | disposition still patient (30) | DRG 951 ==
LOC: SWB 10:30
PROVIDERS: ADMIT Internal Medicine; ATTEND Internal Medicine
DX: Z02.9 Encounter for administrative examinations, unspecified (principal)
CPT/HCPCS: 36415; 36416; 82040; 82247; 82310; 82374; 82435; 82565; 82947; 82948; 84075; 84132; 84155; 84295; 84450; 84460; 84520; 85025; 92523; 97162; 97166; A4216; J0696; J1650; J7030